=== PATIENT | male | born 1960 | race African-American/Black ===

== ENCOUNTER 2016-10-30 04:03 | Emergency (ER) | payer OTHER ==
[~2016-10-30] VITALS: Ht 165.1 cm; Wt 76.9 kg
[~2016-10-30 04:03] MED LIST: AMLO-147 PO; DIAZ-90 PO; HYDR-3498 PO; HYDR25TA6 PO; IBUP-1542 PO; METF500T4 PO; NAPR-260 PO
[2016-10-30 04:05] VITALS: Ht 165.1 cm; Wt 76.9 kg
--- NOTE | 2016-10-30 05:12 | RADRPT ---
PROCEDURE: Chest. CLINICAL INDICATION: Cough. TECHNIQUE: Single frontal view of the chest was obtained. COMPARISON: 04/17/2016. FINDINGS: The cardiac silhouette is within normal limits. The aortic arch is unremarkable. There is no focal consolidation, vascular congestion or pleural effusion. There is no pneumothorax. IMPRESSION: No evidence for active cardiopulmonary disease. .Eldon Nelson MD, MD Date Time Electronically viewed and signed by .Eldon Nelson MD, on 10/30/2016 05:12 .T/
--- NOTE | 2016-10-30 05:17 | ERD ---
ER Documentation Chief Complaint Date/Time DATE: 10/30/16 TIME: 05:14 Chief Complaint cough x 2 months HPI 36-year-old male presents in emergency department for complaints of cough for 2 months. Patient has been having dry cough, does not cough up any phlegm or blood. Patient does not have any shortness breath or wheezing. Patient takes Claritin home, was told to be having postnasal drip is white he has been coughing for 2 months now. Patient does not have any chest pain or palpitations. Patient denies any fever or chills. Patient denies any dyspnea on exertion or dyspnea on lying down. ROS All systems reviewed and are negative except as per history of present illness. Medications Home Meds Active Scripts Naproxen* (Naprosyn*) 500 Mg Tablet, 500 MG PO BID Y for PAIN AND/OR INFLAMMATION, #20 TAB Prov:RADHA MOORE 04/17/16 Hydrocodone Bit-Acetaminophen* ([place]*) 5-325 Mg Tab, 1 TAB PO Q6 Y for PAIN, # 20 TAB Prov:RADHA MOORE 04/17/16 Diazepam* (Valium*) 5 Mg Tablet, 5 MG PO Q8 Y for ANXIETY, #10 TAB Prov:RADHA MOORE 04/17/16 Ibuprofen* (Motrin*) 600 Mg Tab, 600 MG PO BID, #30 TAB 0 Refills Prov:GALI LARKIN PA-C 10/16/15 Reported Medications Metformin* (Glucophage*) 500 Mg Tab, 500 MG PO daily 03/06/13 Amlodipine Besylate* (Amlodipine Besylate*) 10 Mg Tablet, 10 MG PO DAILY 10/08/12 Hydrochlorothiazide (Hydrochlorothiazide) 25 Mg Tablet, 25 MG PO DAILY 02/12/12 Allergies Allergies: Coded Allergies: Shellfish (Verified Allergy, Unknown, 10/24/14) PMhx/Soc History of Surgery: Yes (R Hip Repair,Colorectomy) Anesthesia Reaction: No Hx Neurological Disorder: No Hx Respiratory Disorders: No Hx Cardiac Disorders: Yes (HTN) Hx Psychiatric Problems: No Hx Miscellaneous Medical Probl: Yes (Colon CA,L Index Finger Fx,L Shoulder Sprain,Tinea Cruris,Dyslipidemia,DM) Hx Alcohol Use: Yes (Social) Hx Substance Use: Yes (Weeds during his younger years) Hx Tobacco Use: Yes Smoking Status: Current every day smoker FmHx Family History: No coronary disease, No diabetes, No other Physical Exam Vitals Vital Signs Date Time Temp Pulse Resp B/P Pulse Ox O2 Delivery O2 Flow Rate FiO2 10/30/16 04:05 97.0 85 20 145/90 97 Physical Exam GENERAL: The patient is well developed and appropriate for usual state of health, in no apparent distress. HEENT: Atraumatic. Ears: Normal tympanic membrane, no erythema or bulging. No ear canal swelling. No ear discharge. Nose: Erythematous nasal turbinates with clear nasal discharge. Throat: oropharynx erythematous with postnasal drip. No tonsillar swelling or tonsillar exudates. No lymphadenopathy. CHEST: Clear to auscultation bilaterally. There are no rales, wheezes or rhonchi. HEART: Regular rate and rhythm. No murmurs, clicks, rubs or gallops. No S3 or S4. ABDOMEN: Soft, nontender and nondistended. Good bowel sounds. No rebound or guarding. No gross peritonitis. No gross organomegaly or masses. No Rauno sign or McBurney point tenderness. BACK: No midline or flank tenderness. EXTREMITIES: Equal pulses bilaterally. There is no peripheral clubbing, cyanosis or edema. No focal swelling or erythema. Full range of motion. Grossly neurovascularly intact. NEURO: Alert and oriented. Cranial nerves 2-12 intact. Motor strength in all 4 extremities with 5/5 strength. Sensation grossly intact. Normal speech and gait. SKIN: There is no apparent rash or petechia. The skin is warm and dry. HEMATOLOGIC AND LYMPHATIC: There is no evidence of excessive bruising or lymphedema. No gross cervical, axillary, or inguinal lymphadenopathy. Results 24 hrs PROCEDURE: Chest. CLINICAL INDICATION: Cough. TECHNIQUE: Single frontal view of the chest was obtained. COMPARISON: 04/17/2016. FINDINGS: The cardiac silhouette is within normal limits. The aortic arch is unremarkable. There is no focal consolidation, vascular congestion or pleural effusion. There is no pneumothorax. IMPRESSION: No evidence for active cardiopulmonary disease. .Eldon Nelson MD, Date Time Electronically viewed and signed by .Eldon Nelson MD, on 10/30/2016 05:12 .T/ CC: DHAVAL COLVIN WHISTLE PUNK Procedures/MDM Medical Decision Making: Patient symptoms are most likely consistent with any cough, possible from allergic rhinitis, can be also from atypical infection. A trial of antibiotics is with azithromycin will be given, patient will also given Flonase, Zyrtec, cough medication to help with symptoms.. There is low suspicion for Pneumonia at this time since patients lungs sounds are clear, patient O2 saturation is normal and patient doesnt show any respiratory distress. Patients chest xray doesnt show infiltrates or any other cardiopulmonary emergencies at this time. There is low suspicion for other cardiopulmonary emergencies at this time such as CHF, Pulmonary Embolism, Pneumothorax, Aortic Aneurysm or any other cardiopulmonary emergencies at this time. There is low suspicion for sepsis. Patient appears well and is hemodynamically stable. Patient does not have any fever. Disposition: Home. Condition: Stable Prescriptions: Zyrtec, Flonase, azithromycin, guaifenesin with codeine Instructions: Patient is advised to take medications as prescribed. Patient is advised to rest. Patient advised to increase fluid intake, do humidifier at home and if possible, do salt water gargles. Patient is advised that if symptoms are worse, shortness of breath, uncontrolled fever, stridor, vomiting, worst signs and symptoms to return to emergency department immediately. Otherwise, patient is advised to follow up with primary doctor in 5-7 days. Departure Diagnosis: Primary Impression: Chronic cough Condition: Stable Patient Instructions: Cough, Chronic, Uncertain Cause, (Adult) Additional Instructions: Patient is advised to take medications as prescribed. Patient is advised to rest. Patient advised to increase fluid intake, do humidifier at home and if possible, do salt water gargles. Patient is advised that if symptoms are worse, shortness of breath, uncontrolled fever, stridor, vomiting, worst signs and symptoms to return to emergency department immediately. Otherwise, patient is advised to follow up with primary doctor in 5-7 days. DHAVAL COLVIN NP Oct 30, 2016 05:17
[2016-10-30] MEDS ORDERED: FLUT9.9S NASAL (05:18)
[2016-10-30] MEDS ORDERED: GUAI473L22 PO (05:18)
[2016-10-30] MEDS ORDERED: CETI10CA PO (05:18)
[2016-10-30] MEDS ORDERED: ALBU8.5H3 INH (05:18)
[2016-10-30] MEDS ORDERED: AZIT250T94 PO (05:18)
== END 2016-10-30 05:39 | disposition home or self-care (01) ==
LOC: FTE 04:03
DX: R05 Cough (principal); F17.210 Nicotine dependence, cigarettes, uncomplicated; I10 Essential (primary) hypertension; E11.9 Type 2 diabetes mellitus without complications; Z79.84 Long term (current) use of oral hypoglycemic drugs; Z85.038 Personal history of other malignant neoplasm of large intestine
CPT/HCPCS: 71010; Z7502

== ENCOUNTER 2016-11-30 07:07 | Emergency (ER) | payer OTHER ==
[~2016-11-30] VITALS: Ht 180.3 cm; Wt 77.0 kg
[~2016-11-30 07:07] MED LIST changes: +ALBU8.5H3 INH; +AZIT250T94 PO; +CETI10CA PO; +FLUT9.9S NASAL; +GUAI473L22 PO
[2016-11-30 07:09] VITALS: Ht 180.3 cm; Wt 77.0 kg
--- NOTE | 2016-11-30 08:02 | RADRPT ---
PROCEDURE: Chest x-ray CLINICAL INDICATION: Cough. Pain TECHNIQUE: One-view frontal. COMPARISON: 10/30/2016 FINDINGS: The cardiac silhouette is normal. There is a nonspecific somewhat vaguely defined area of increased density measuring approximately 2 cm in size in the right laisha infrahilar region. The left lung is clear. No pneumothorax is noted. The aorta is ectatic. IMPRESSION: 1. 2 cm area of increased density in the right laisha infrahilar region. It is indeterminate if this may represent a vascular structure or a nodular process. CT study of the chest with intravenous co ntrast is recommended for further evaluation. RPTAT: HGSG .Nilay Kidd MD, Date Time Electronically viewed and signed by .Nilay Kidd MD, on 11/30/2016 08:01 .G/
--- NOTE | 2016-11-30 08:18 | ERD ---
ER Documentation Chief Complaint Date/Time DATE: 11/30/16 TIME: 08:17 Chief Complaint SORE THROAT X 3 DAYS HPI This a 56-year-old male who presents to the emergency department today complaining of persistent cough for the past month or so. Patient states he was seen here in October and was given a lot of medication but none of it has improved his cough. Patient states he also woke up with lip swelling after taking the medication. States he also takes lisinopril and amlodipine for his high blood pressure. States that he also smokes cigarettes. Denies any fevers or chills. ROS All systems reviewed and are negative except as per history of present illness. Medications Home Meds Active Scripts Dextromethorphan Hb-Promethazine Hcl (Promethazine DM Syrup) 473 Ml Syrup, 5 ML PO Q6 Y for COUGH for 5 Days, ML Prov:GERMAN LAMBERT PA-C 11/30/16 Azithromycin* (Zithromax*) 250 Mg Tablet, 250 MG PO .GorgePACK DIRECTED, #6 TAB TAKE 500 MG (2 TABS) THE FIRST DAY THEN 250 MG (1 TAB) DAYS 2-5 Prov:DHAVAL COLVIN NP 10/30/16 Fluticasone Propionate (Flonase Allergy Relief) 9.9 Ml [place].susp, 1 SPRAY NASAL BID, #1 BOTTLE TO EACH NOSTRIL Prov:DHAVAL COLVIN NP 10/30/16 Albuterol Sulfate* (Proair HFA*) 8.5 Gm Hfa.aer.ad, 2 PUFF INH Q4H Y for WHEEZING AND SOB, #1 INHALER Prov:DHAVAL COLVIN NP 10/30/16 Cetirizine Hcl* (Zyrtec*) 10 Mg Capsule, 10 MG PO DAILY, #30 TAB.CHEW Prov:DHAVAL COLVIN NP 10/30/16 Guaifenesin-Codeine Phosphate* (Guaifenesin* AC Cough Syrup) 473 Ml Liquid, 10 ML PO Q4H Y for COUGH, #120 ML Prov:DHAVAL COLVIN NP 10/30/16 Naproxen* (Naprosyn*) 500 Mg Tablet, 500 MG PO BID Y for PAIN AND/OR INFLAMMATION, #20 TAB Prov:RADHA MOORE 04/17/16 Hydrocodone Bit-Acetaminophen* ([place]*) 5-325 Mg Tab, 1 TAB PO Q6 Y for PAIN, # 20 TAB Prov:RADHA MOORE 04/17/16 Diazepam* (Valium*) 5 Mg Tablet, 5 MG PO Q8 Y for ANXIETY, #10 TAB Prov:RADHA MOORE 04/17/16 Ibuprofen* (Motrin*) 600 Mg Tab, 600 MG PO BID, #30 TAB 0 Refills Prov:GALI LARKIN PA-C 10/16/15 Reported Medications Metformin* (Glucophage*) 500 Mg Tab, 500 MG PO daily 03/06/13 Amlodipine Besylate* (Amlodipine Besylate*) 10 Mg Tablet, 10 MG PO DAILY 10/08/12 Hydrochlorothiazide (Hydrochlorothiazide) 25 Mg Tablet, 25 MG PO DAILY 02/12/12 Allergies Allergies: Coded Allergies: Shellfish (Verified Allergy, Unknown, 11/30/16) PMhx/Soc History of Surgery: Yes (R Hip Repair,Colorectomy) Anesthesia Reaction: No Hx Neurological Disorder: No Hx Respiratory Disorders: No Hx Cardiac Disorders: Yes (HTN) Hx Psychiatric Problems: No Hx Miscellaneous Medical Probl: Yes (Colon CA,L Index Finger Fx,L Shoulder Sprain,Tinea Cruris,Dyslipidemia,DM) Hx Alcohol Use: Yes (Social) Hx Substance Use: Yes (Weeds during his younger years) Hx Tobacco Use: Yes Smoking Status: Current every day smoker Physical Exam Vitals Vital Signs Date Time Temp Pulse Resp B/P Pulse Ox O2 Delivery O2 Flow Rate FiO2 11/30/16 07:09 98.0 78 18 137/80 99 Physical Exam Const: NAD Head: Atraumatic Eyes: Normal Conjunctiva ENT: Normal External Ears, Nose and Mouth. Neck: Full range of motion..~ No meningismus. Resp: Clear to auscultation bilaterally. No absent breath sounds. No wheezing. Cardio: Regular rate and rhythm, no murmurs Abd: Soft, non tender, non distended. Normal bowel sounds Skin: No petechiae or rashes Neur: Awake and alert Psych: Normal Mood and Affect Results 24 hrs DIAGNOSTIC IMAGING REPORT Patient: ANN MARIE HAND : 1960 Age: 56 Sex: M MR #: [id number] DOS: 11/30/16 0000 Ordering MD: GERAMN LAMBERT PA-C Location: [facility] Room/Bed: PROCEDURE: Chest x-ray CLINICAL INDICATION: Cough. Pain TECHNIQUE: One-view frontal. COMPARISON: 10/30/2016 FINDINGS: The cardiac silhouette is normal. There is a nonspecific somewhat vaguely defined area of increased density measuring approximately 2 cm in size in the right laisha infrahilar region. The left lung is clear. No pneumothorax is noted. The aorta is ectatic. IMPRESSION: 1. 2 cm area of increased density in the right laisha infrahilar region. It is indeterminate if this may represent a vascular structure or a nodular process. CT study of the chest with intravenous contrast is recommended for further evaluation. RPTAT: HGSG .Nilay Kidd MD, MD Date Time Electronically viewed and signed by .Nilay Kidd MD, on 11/30/2016 08: 01 .G/ CC: GERMAN LAMBERT PA-C Procedures/[facility] This a 56-year-old male who presents to the emergency department today complaining of persistent cough for the past month. I did repeat a chest x-ray Chest x-ray today shows a 2 cm area of increased density in the right laisha- infrahilar region. It is indeterminate if this represents a vascular structure or nodular process. A CT study of the chest with IV contrast was recommended for further eval. this was not noted on his chest x-ray on his previous visit on October 30, 2016. I have explained this to the patient. There is no evidence of pneumonia at this time. Low suspicion for PE, abscess, pleural effusion or pneumothorax as well. I do not feel the patient requires antibiotics at this time. I have explained this to the patient. Patient is afebrile and otherwise well-appearing. Patient was instructed to stop smoking cigarettes. I have also explained to the patient that the lisinopril also been causing the angioedema as well as the persistent cough. There is no evidence of angioedema today on physical exam. Patient's oxygen saturation is 99%. I have explained to the patient that he does need to follow- up about the findings on his chest x-ray. I have given him a list of resources for pulmonology specialist. Patient was given a prescription for Promethazine DM. At this time the patient is stable for discharge and outpatient management. Patient should follow up with their PCP in the next 1-2 days. They may return to the emergency department sooner for any persistent or worsening of symptoms. Patient understood and agreed with the plan. I discussed the patient with and he does not feel he needs further evaluation or workup at this time. Departure Diagnosis: Primary Impression: Cough Condition: GERMAN Zamora PA-C Nov 30, 2016 08:18
[2016-11-30] MEDS ORDERED: D-ME473S18 PO (08:29)
== END 2016-11-30 08:41 | disposition home or self-care (01) ==
LOC: FTE 07:07
DX: R05 Cough (principal); I10 Essential (primary) hypertension; F17.210 Nicotine dependence, cigarettes, uncomplicated; E11.9 Type 2 diabetes mellitus without complications; Z85.038 Personal history of other malignant neoplasm of large intestine; Z79.84 Long term (current) use of oral hypoglycemic drugs
CPT/HCPCS: 71010; Z7502

== ENCOUNTER 2017-03-24 22:58 | Emergency (ER) | payer OTHER ==
[~2017-03-24] VITALS: Ht 167.6 cm; Wt 71.5 kg
[~2017-03-24 22:58] MED LIST changes: +D-ME473S18 PO
[2017-03-24 23:04] VITALS: Ht 167.6 cm; Wt 71.5 kg
[2017-03-25] MEDS ORDERED: LIDO30JE13 RECTAL (00:26)
[2017-03-25] MEDS ORDERED: HYDR30CR75 PR (00:26)
[2017-03-25] MEDS ORDERED: BEN25 PO (00:27)
--- NOTE | 2017-03-25 00:42 | ERD ---
ER Documentation Chief Complaint Date/Time DATE: 03/25/17 TIME: 00:34 Chief Complaint pt reports hemorroids itching, denies blood in stool HPI Patient is a 57-year-old male with a history of diabetes, hypertension, BPH, hyperlipidemia, colon cancer presents the emergency department with concerns of rectal itching x 1 week. Patient states he has had hemorrhoids in the past. Patient states that his symptoms feel similar at this time. Patient does note a bulge in his anal region. Patient does report straining and a history of constipation. States he passed a large bowel movement earlier today. After his bowel movement he did notice some blood on the toilet paper. Patient denies any blood in his stools. Patient recently underwent endoscopy and colonoscopy in January of this year which were negative for any signs of cancer. Patient denies any fevers, chills, nausea, vomiting, abdominal pain, diarrhea or loss consciousness. ROS All systems reviewed and are negative except as per history of present illness. Medications Home Meds Active Scripts Diphenhydramine Hcl* (Benadryl*) 25 Mg Cap, 25 MG PO Q6, #30 CAP Prov:DAMION CARRANZA PA-C 03/25/17 Hydrocortisone Acetate* (Anusol-HC*) 30 Gm Cream.gm., 1 APPLIC MA BID, #1 TUB Prov:DAMION CARRANZA PA-C 03/25/17 Lidocaine (Lidocaine Topical) 30 Ml Jel, 30 ML RECTAL BID, #1 TUB Prov:DAMION CARRANZA PA-C 03/25/17 Dextromethorphan Hb-Promethazine Hcl (Promethazine DM Syrup) 473 Ml Syrup, 5 ML PO Q6 Y for COUGH for 5 Days, ML Prov:GERMAN LAMBERT PA-C 11/30/16 Azithromycin* (Zithromax*) 250 Mg Tablet, 250 MG PO .GorgePACK DIRECTED, #6 TAB TAKE 500 MG (2 TABS) THE FIRST DAY THEN 250 MG (1 TAB) DAYS 2-5 Prov:DHAVAL COLVIN NP 10/30/16 Fluticasone Propionate (Flonase Allergy Relief) 9.9 Ml [place].susp, 1 SPRAY NASAL BID, #1 BOTTLE TO EACH NOSTRIL Prov:DHAVAL COLVIN NP 10/30/16 Albuterol Sulfate* (Proair HFA*) 8.5 Gm Hfa.aer.ad, 2 PUFF INH Q4H Y for WHEEZING AND SOB, #1 INHALER Prov:DHAVAL COLVIN DIRECTOR [employer]ANCE 10/30/16 Cetirizine Hcl* (Zyrtec*) 10 Mg Capsule, 10 MG PO DAILY, #30 TAB.CHEW Prov:DHAVAL COLVIN DIRECTOR [employer]ANCE 10/30/16 Guaifenesin-Codeine Phosphate* (Guaifenesin* AC Cough Syrup) 473 Ml Liquid, 10 ML PO Q4H Y for COUGH, #120 ML Prov:DHAVAL COLVIN DIRECTOR [employer]ANCE 10/30/16 Naproxen* (Naprosyn*) 500 Mg Tablet, 500 MG PO BID Y for PAIN AND/OR INFLAMMATION, #20 TAB Prov:RADHA MOORE 04/17/16 Hydrocodone Bit-Acetaminophen* ([place]*) 5-325 Mg Tab, 1 TAB PO Q6 Y for PAIN, # 20 TAB Prov:RADHA MOORE 04/17/16 Diazepam* (Valium*) 5 Mg Tablet, 5 MG PO Q8 Y for ANXIETY, #10 TAB Prov:RADHA MOORE 04/17/16 Ibuprofen* (Motrin*) 600 Mg Tab, 600 MG PO BID, #30 TAB 0 Refills Prov:GALI LARKIN PA-C 10/16/15 Reported Medications Metformin* (Glucophage*) 500 Mg Tab, 500 MG PO daily 03/06/13 Amlodipine Besylate* (Amlodipine Besylate*) 10 Mg Tablet, 10 MG PO DAILY 10/08/12 Hydrochlorothiazide (Hydrochlorothiazide) 25 Mg Tablet, 25 MG PO DAILY 02/12/12 Allergies Allergies: Coded Allergies: Shellfish (Verified Allergy, Unknown, 11/30/16) PMhx/Soc History of Surgery: Yes (R Hip Repair,Colorectomy) Anesthesia Reaction: No Hx Neurological Disorder: No Hx Respiratory Disorders: No Hx Cardiac Disorders: Yes (HTN, HIGH CHOL) Hx Psychiatric Problems: No Hx Miscellaneous Medical Probl: Yes (Colon CA,L Index Finger Fx,L Shoulder Sprain,Tinea Cruris,Dyslipidemia,DM) Hx Alcohol Use: Yes (Social) Hx Substance Use: Yes (MARIJUANA WHILE YOUNG) Hx Tobacco Use: Yes Smoking Status: Current every day smoker Physical Exam Vitals Vital Signs Date Time Temp Pulse Resp B/P Pulse Ox O2 Delivery O2 Flow Rate FiO2 03/24/17 23:04 98.3 77 18 137/88 99 Physical Exam GENERAL: Well-developed, well-nourished male. Appears in no acute distress. HEAD: Normocephalic, atraumatic. EYES: Pupils are equally reactive bilaterally. EOMs grossly intact. No conjunctival erythema. ENT: Moist mucous membranes. No uvula deviation. No kissing tonsils. NECK: Supple. No meningismus. Normal range of motion of the neck. LUNG: Clear to auscultation bilaterally. No rhonchi, wheezing, rales or coarse breath sounds. HEART: Regular rate and rhythm. No murmurs, rubs or gallops. ABDOMEN: Soft, nontender, and nondistended. Positive bowel sounds in all four quadrants. No rebound tenderness, no guarding. (-) McBurney's point tenderness. No CVA tenderness. RECTAL: Normal anus with large external hemorrhoids. No active bleeding or discharge. No lesions noted surrounding anal region. EXTREMITIES: Equal pulses bilaterally. No peripheral clubbing, cyanosis or edema. No unilateral leg swelling. NEUROLOGIC: Alert and oriented. Moving all four extremities without any difficulty. Normal speech. Steady gait. SKIN: Normal color. Warm and dry. No rashes or lesions. Results 24 hrs Current Medications Medications (Trade) Dose Ordered Sig/Filippo Route PRN Reason Start Time Stop Time Status Last Admin Dose Admin Diphenhydramine HCl (Benadryl) 25 mg ONCE ONCE PO 03/25/17 01:30 03/25/17 01:30 DC 03/25/17 01:15 Procedures/MDM MEDICAL DECISION MAKING: Patient is a 57-year-old male who presents to the ED for concerns of recurrence of hemorrhoids and rectal itching x 1 week. Vital signs were reviewed. Patient is afebrile. Patient was not hypoxic. Patient was hemodynamically stable. Physical exam findings are consistent with external hemorrhoids. At this time unable to rule out any internal hemorrhoids. At this time, patient presentation is most consistent with external hemorrhoids and rectal itching. Low suspicion for anal fissures, anal fistula, pilonidal abscess, perirectal abscess, constipation, IBD. Patient was advised to follow-up with his GI specialist for further management of his hemorrhoids. Patient may need a lumbar patient may need repeat colonoscopy for ruling out any internal hemorrhoids. PRESCRIPTION: DISCHARGE: At this time, patient is stable for discharge and outpatient management. I have instructed the patient to follow-up with his/her primary care physician in 1-2 days. I have discussed with the patient the possibility of needing to see a specialist for further workup and imaging studies if symptoms persist. I have instructed the patient to promptly return to the ER for any new or worsening symptoms including increased pain, fever, nausea, vomiting, weakness or LOC. The patient and/or family expressed understanding of and agreement with this plan. All questions were answered. Home care instructions were provided. Departure Diagnosis: Primary Impression: External hemorrhoids Condition: Stable Patient Instructions: Understanding Hemorrhoids Referrals: ANTONELLA LOUISE GNANA MD GULSRUD,PRAMOD BILL MD, MD, [place] Additional Instructions: Call your primary care doctor TOMORROW for an appointment during the next 1-2 days.See the doctor sooner or return here if your condition worsens before your appointment time. Follow-up with your GI specialist for further management of your symptoms. You may need a rubber band ligation on an outpatient basis. DAMION CARRANZA PA-C Mar 25, 2017 00:42
[2017-03-25] MEDS ORDERED: DIPHENHYDRAMINE 25 MG CAP PO ONE (01:30)
== END 2017-03-25 01:16 | disposition home or self-care (01) ==
LOC: FTE 22:58
DX: K64.8 Other hemorrhoids (principal); I10 Essential (primary) hypertension; E11.9 Type 2 diabetes mellitus without complications; F17.210 Nicotine dependence, cigarettes, uncomplicated; Z79.84 Long term (current) use of oral hypoglycemic drugs; Z85.038 Personal history of other malignant neoplasm of large intestine
CPT/HCPCS: Z7502; Z7610; 99284

== ENCOUNTER 2017-05-31 17:51 | Inpatient (IN) | payer OTHER ==
[~2017-05-31] VITALS: Ht 167.6 cm; Wt 72.6 kg
[~2017-05-31 17:51] MED LIST changes: +BEN25 PO; +HYDR30CR75 PR; +LIDO30JE13 RECTAL
[2017-05-31] MEDS ORDERED: SOD CHLORIDE 0.9% 1,000 ML IV STA (19:27)
[2017-05-31] MEDS ORDERED: morphine 4 MG/ML VIAL IV STA (19:27)
[2017-05-31] MEDS ORDERED: ONDANSETRON 4 MG INJ IV STA (19:27)
[2017-05-31 20:01] LABS: BASOPHILS % 0.4 % (0.0-2.0); EOSINOPHILS % 0.3 % (0.0-7.0); HEMATOCRIT 47.8 % (42.0-52.0); HEMOGLOBIN 17.4 g/dl (14.0-18.0); LYMPHOCYTES # 1.1 10^3/ul (0.8-2.9); LYMPHOCYTES % 10.4 % (15.0-51.0); MEAN CORPUSCULAR HEMOGLOBIN 30.5 pg (29.0-33.0); MEAN CORPUSCULAR HGB CONC 36.4 g/dl (32.0-37.0); MEAN CORPUSCULAR VOLUME 83.7 fl (82.0-101.0); MEAN PLATELET VOLUME 10.6 fl (7.4-10.4); MONOCYTE # 0.5 10^3/ul (0.3-0.9); MONOCYTES % 4.4 % (0.0-11.0); NEUTROPHIL # 8.9 10^3/ul (1.6-7.5); PLATELET COUNT 310 10^3/UL (140-415); RED BLOOD COUNT 5.71 10^6/ul (4.70-6.10); RED CELL DISTRIBUTION WIDTH 13.2 % (11.5-14.5); WHITE BLOOD COUNT 10.6 10^3/ul (4.8-10.8)
--- NOTE | 2017-05-31 20:55 | RADRPT ---
PROCEDURE: CT Abdomen and Pelvis without contrast. CLINICAL INDICATION: Abdominal and pelvic pain. TECHNIQUE: CT scan of the abdomen and pelvis without contrast was performed. Coronal and sagittal reformatted images were obtained from the axial source images. Images were reviewed on a high-resolu 20:20 [employer] PACS workstation. Total exam DLP is 474.81 mGy-cm. CTDIvol is 7.66 mGy. One or more of the fo llowin dose reduction techniques were used: Automated exposure control, adjustment of the mA and/or kV according to patient size, use of iterative reconstruction technique. COMPARISON: None. FINDINGS: The lung bases are normal. There is no pleural effusion. There is scarring at both lung bases. There is a small benign calcified granuloma in the right lower lobe medially. The lung bases are otherwise normal. There is no pleural effusion or pericardial eff usion. The gallbladder and bile ducts are normal. The spleen is normal in size. There is no focal splenic lesion. Both adrenals are normal with no enlargement or mass. The pancreas is unremarkable with no mass or evidence of pancreatitis. There is no renal mass or hydronephrosis. There is no renal calculus or ureteral calculus. The abdominal aorta is not dilated. There is calcification in the aorta consistent with atherosclero sis. There is no retroperitoneal lymphadenopathy or mass. There is no pelvic lymphadenopathy or mass. The bladder and distal ureters are normal. There has been prior bowel surgery with multiple eagle in the right lower quadrant. There is small bowel obstruction with multiple dilated loops of small bowel distally with air-fluid levels. Dilated small bowel measures up to 4.3 cm in diameter. No definite transition point is visua lized. There is diverticulosis of the colon without evidence of diverticulitis. A small amount of free fluid is present in the pelvis. There is no free air. There are degenerative changes of the spine. There is heterotopic bone formation adjacent to the rig ht acetabulum. The osseous structures are otherwise unremarkable. IMPRESSION: 1. Scarring at the lung bases. 2. Benign calcified granuloma in the right lower lobe medially. 3. Atherosclerosis. 4. Prior bowel surgery with multiple eagle in the right lower quadrant. 5. Small bowel obstruction with no definite transition point visualized. 6. Diverticulosis of the colon without evidence of diverticulitis. 7. Small amount of free fluid in the pelvis. No free air. 8. Degenerative changes of the spine. 9. Heterotopic bone formation adjacent to the right acetabulum. RPTAT: QQ .Pranav Gallo MD, Date Time Electronically viewed and signed by .Pranav Gallo MD, on 05/31/2017 20:54 .R/
[2017-05-31 21:23] LABS: ALBUMIN 4.2 g/dl (3.3-4.9); ALBUMIN/GLOBULIN RATIO 1.23; BILIRUBIN,INDIRECT 0.7 mg/dl (0-1.1); BILIRUBIN,TOTAL 0.7 mg/dl (0.2-1.3); CALCIUM 8.9 mg/dl (8.4-10.2); CREATININE 0.99 mg/dl (0.61-1.24); POTASSIUM 3.5 mmol/L (3.5-5.1); TOTAL PROTEIN 7.6 g/dl (6.1-8.1)
--- NOTE | 2017-05-31 21:38 | ERD ---
ER Documentation Chief Complaint Date/Time DATE: 05/31/17 TIME: 21:34 Chief Complaint ABD PAIN X "A COUPLE OF HOURS" HPI This is a 57-year-old male presents to the ER with mid abdominal pain that started this morning. Patient states that abdominal pain is intermittent and severe. Patient has had nausea and vomiting. He denies any diarrhea he denies any fevers or chills. He denies any testicular pain. He denies any urinary frequency or dysuria. He denies any flank pain. Patient has a past medical history of hypertension and colon cancer had extensive abdominal surgery. Patient admits to drinking smoking. ROS 12 point review of systems was done, all negative except per HPI. Medications Home Meds Active Scripts Diphenhydramine Hcl* (Benadryl*) 25 Mg Cap, 25 MG PO Q6, #30 CAP Prov:DAMION CARRANZA PA-C 03/25/17 Hydrocortisone Acetate* (Anusol-HC*) 30 Gm Cream.gm., 1 APPLIC ME BID, #1 TUB Prov:DAMION CARRANZA PA-C 03/25/17 Lidocaine (Lidocaine Topical) 30 Ml Jel, 30 ML RECTAL BID, #1 TUB Prov:DAMION CARRANZA PA-C 03/25/17 Dextromethorphan Hb-Promethazine Hcl (Promethazine DM Syrup) 473 Ml Syrup, 5 ML PO Q6 Y for COUGH for 5 Days, ML Prov:GERMAN LAMBERT PA-C 11/30/16 Azithromycin* (Zithromax*) 250 Mg Tablet, 250 MG PO .GorgePASANAZ DIRECTED, #6 TAB TAKE 500 MG (2 TABS) THE FIRST DAY THEN 250 MG (1 TAB) DAYS 2-5 Prov:DHAVAL COLVIN NP 10/30/16 Fluticasone Propionate (Flonase Allergy Relief) 9.9 Ml [place].susp, 1 SPRAY NASAL BID, #1 BOTTLE TO EACH NOSTRIL Prov:DHAVAL COLVIN NP 10/30/16 Albuterol Sulfate* (Proair HFA*) 8.5 Gm Hfa.aer.ad, 2 PUFF INH Q4H Y for WHEEZING AND SOB, #1 INHALER Prov:DHAVAL COLVIN NP 10/30/16 Cetirizine Hcl* (Zyrtec*) 10 Mg Capsule, 10 MG PO DAILY, #30 TAB.CHEW Prov:DHAVAL COLVIN SUPERVISOR [employer]SEMBLY 10/30/16 Guaifenesin-Codeine Phosphate* (Guaifenesin* AC Cough Syrup) 473 Ml Liquid, 10 ML PO Q4H Y for COUGH, #120 ML Prov:DHAVAL COLVIN SUPERVISOR [employer]IDE [employer]SEMBLY 10/30/16 Naproxen* (Naprosyn*) 500 Mg Tablet, 500 MG PO BID Y for PAIN AND/OR INFLAMMATION, #20 TAB Prov:RADHA MOORE 04/17/16 Hydrocodone Bit-Acetaminophen* ([place]*) 5-325 Mg Tab, 1 TAB PO Q6 Y for PAIN, # 20 TAB Prov:RADHA MOORE 04/17/16 Diazepam* (Valium*) 5 Mg Tablet, 5 MG PO Q8 Y for ANXIETY, #10 TAB Prov:RADHA MOORE 04/17/16 Ibuprofen* (Motrin*) 600 Mg Tab, 600 MG PO BID, #30 TAB 0 Refills Prov:GALI LARKIN PA-C 10/16/15 Reported Medications Metformin* (Glucophage*) 500 Mg Tab, 500 MG PO daily 03/06/13 Amlodipine Besylate* (Amlodipine Besylate*) 10 Mg Tablet, 10 MG PO DAILY 10/08/12 Hydrochlorothiazide (Hydrochlorothiazide) 25 Mg Tablet, 25 MG PO DAILY 02/12/12 Allergies Allergies: Coded Allergies: Shellfish (Verified Allergy, Unknown, 11/30/16) PMhx/Soc History of Surgery: Yes (R Hip Repair,Colorectomy from colon ca) Anesthesia Reaction: No Hx Neurological Disorder: No Hx Respiratory Disorders: No Hx Cardiac Disorders: Yes (HTN, HIGH CHOL) Hx Psychiatric Problems: No Hx Miscellaneous Medical Probl: Yes (Colon CA,L Index Finger Fx,L Shoulder Sprain,Tinea Cruris,Dyslipidemia,DM) Hx Alcohol Use: Yes (Social) Hx Substance Use: Yes (MARIJUANA WHILE YOUNG) Hx Tobacco Use: Yes Smoking Status: Current some day smoker Physical Exam Vitals Vital Signs Date Time Temp Pulse Resp B/P Pulse Ox O2 Delivery O2 Flow Rate FiO2 05/31/17 17:55 98.1 78 18 147/83 91 Physical Exam GENERAL: The patient is well developed and appropriate for usual state of health , in no apparent distress. HEENT: Atraumatic. Conjunctivae are pink. Pupils equal, round, and reactive to light. Extraocular muscles are grossly intact. Bilateral tympanic membranes are clear with no evidence of erythema, effusion or dulling of the light reflex. The oropharynx is clear with no erythema or exudates. NECK: C-spine is soft and supple. There is no cervical lymphadenopathy. CHEST: Clear to auscultation bilaterally. There are no rales, wheezes or rhonchi. HEART: Regular rate and rhythm. No murmurs, clicks, rubs or gallops. ABDOMEN: Soft nondistended, patient is tender to palpation throughout the entire abdomen, and is most tender in the middle of the abdomen there is a large vertical scar from prior surgery.. Good bowel sounds. No rebound or guarding. No gross peritonitis. No gross organomegaly or masses. No Ruano sign or McBurney point tenderness. BACK: No midline or flank tenderness. NEURO: Alert and oriented. SKIN: There is no apparent rash or petechia. The skin is warm and dry. Result Diagram: 05/31/17194805/31/172044 Results 24 hrs Laboratory Tests Test 05/31/17 19:49 05/31/17 20:45 White Blood Count 10.610^3/ul Red Blood Count 5.7110^6/ul Hemoglobin 17.4g/dl Hematocrit 47.8% Mean Corpuscular Volume 83.7fl Mean Corpuscular Hemoglobin 30.5pg Mean Corpuscular Hemoglobin Concent 36.4g/dl Red Cell Distribution Width 13.2% Platelet Count 53618^3/UL Mean Platelet Volume 10.6fl Neutrophils % 84.0% Lymphocytes % 10.4% Monocytes % 4.4% Eosinophils % 0.3% Basophils % 0.4% Nucleated Red Blood Cells % 0.0/100WBC Neutrophils # 8.910^3/ul Lymphocytes # 1.110^3/ul Monocytes # 0.510^3/ul Eosinophils # 0.010^3/ul Basophils # 0.010^3/ul Nucleated Red Blood Cells # 0.010^3/ul Sodium Level 134mmol/L Potassium Level 3.5mmol/L Chloride Level 95mmol/L Carbon Dioxide Level 24mmol/L Anion Gap 19 Blood Urea Nitrogen 18mg/dl Creatinine 0.99mg/dl Glucose Level 115mg/dl Calcium Level 8.9mg/dl Total Bilirubin 0.7mg/dl Direct Bilirubin 0.00mg/dl Indirect Bilirubin 0.7mg/dl Aspartate Amino Transf (AST/SGOT) 32IU/L Alanine Aminotransferase (ALT/SGPT) 34IU/L Alkaline Phosphatase 91IU/L Total Protein 7.6g/dl Albumin 4.2g/dl Globulin 3.40g/dl Albumin/Globulin Ratio 1.23 Lipase 48U/L Current Medications Medications (Trade) Dose Ordered Sig/Filippo Route PRN Reason Start Time Stop Time Status Last Admin Dose Admin Sodium Chloride (NS) 1,000 ml @ 1,000 mls/hr Q1H STAT IV 05/31/17 19:27 05/31/17 20:26 DC 05/31/17 19:56 Morphine Sulfate (morphine) 6 mg ONCE STAT IV 05/31/17 19:27 05/31/17 19:30 DC 05/31/17 19:49 Ondansetron HCl (Zofran Inj) 4 mg ONCE STAT IV 05/31/17 19:27 05/31/17 19:30 DC 05/31/17 19:49 [place] [id number] Radiology Main Line: [phone] DIAGNOSTIC IMAGING REPORT Patient: ANN MARIE HAND : 1960 Age: 57 Sex: M MR #: [id number] DOS: 05/31/171926 Ordering MD: DARREL WILCOX PA-C Location: [facility] Room/Bed: PROCEDURE: CT Abdomen and Pelvis without contrast. CLINICAL INDICATION: Abdominal and pelvic pain. TECHNIQUE: CT scan of the abdomen and pelvis without contrast was performed. Coronal and sagittal reformatted images were obtained from the axial source images. Images were reviewed on a high-resolution PACS workstation. Total exam DLP is 474.81 mGy-cm. CTDIvol is 7.66 mGy. One or more of the following dose reduction techniques were used: Automated exposure control, adjustment of the mA and/or kV according to patient size, use of iterative reconstruction technique. COMPARISON: None. FINDINGS: The lung bases are normal. There is no pleural effusion. There is scarring at both lung bases. There is a small benign calcified granuloma in the right lower lobe medially. The lung bases are otherwise normal. There is no pleural effusion or pericardial effusion. The gallbladder and bile ducts are normal. The spleen is normal in size. There is no focal splenic lesion. Both adrenals are normal with no enlargement or mass. The pancreas is unremarkable with no mass or evidence of pancreatitis. There is no renal mass or hydronephrosis. There is no renal calculus or ureteral calculus. The abdominal aorta is not dilated. There is calcification in the aorta consistent with atherosclerosis. There is no retroperitoneal lymphadenopathy or mass. There is no pelvic lymphadenopathy or mass. The bladder and distal ureters are normal. There has been prior bowel surgery with multiple ealge in the right lower quadrant. There is small bowel obstruction with multiple dilated loops of small bowel distally with air-fluid levels. Dilated small bowel measures up to 4.3 cm in diameter. No definite transition point is visualized. There is diverticulosis of the colon without evidence of diverticulitis. A small amount of free fluid is present in the pelvis. There is no free air. There are degenerative changes of the spine. There is heterotopic bone formation adjacent to the right acetabulum. The osseous structures are otherwise unremarkable. IMPRESSION: 1. Scarring at the lung bases. 2. Benign calcified granuloma in the right lower lobe medially. 3. Atherosclerosis. 4. Prior bowel surgery with multiple eagle in the right lower quadrant. 5. Small bowel obstruction with no definite transition point visualized. 6. Diverticulosis of the colon without evidence of diverticulitis. 7. Small amount of free fluid in the pelvis. No free air. 8. Degenerative changes of the spine. 9. Heterotopic bone formation adjacent to the right acetabulum. RPTAT: QQ .Pranav Gallo MD, MD Date Time Electronically viewed and signed by .Pranav Gallo MD, MD on 05/31/2017 20:54 .R/ CC: DARREL WILCOX/MDM Differential diagnosis includes but is not limited to appendicitis, hernia, testicular torsion, UTI, constipation, obstruction, epididymitis this is a 57- year-old male presents to the ER with abdominal pain, patient does have a small bowel obstruction on CT scan, likely due to adhesions from previous surgery. Patient be transferred to ER 1 for further management and care.. Departure Diagnosis: Primary Impression: Small bowel obstruction Condition: Stable DARREL WILCOX May 31, 2017 21:38
[2017-05-31] MEDS ORDERED: SOD CHLORIDE 0.9% 1,000 ML IV SCH (23:49)
[2017-06-01] MEDS ORDERED: ACETAMINOPHEN 325 MG TAB PO PRN
[2017-06-01 00:22] LABS: ADD UMIC YES; UR ASCORBIC ACID NEGATIVE (NEGATIVE); UR BILIRUBIN (Dip) NEGATIVE (NEGATIVE); UR BLOOD (Dip) NEGATIVE (NEGATIVE); UR CLARITY CLEAR (CLEAR); UR COLOR YELLOW (YELLOW); UR GLUCOSE (Dip) NEGATIVE (NEGATIVE); UR KETONES (Dip) 1+ mg/dL (NEGATIVE); UR LEUKOCYTE ESTERASE (Dip) NEGATIVE Leu/ul (NEGATIVE); UR NITRITE (Dip) NEGATIVE (NEGATIVE); UR RBC 1 /HPF (0-5); UR SPECIFIC GRAVITY (Dip) 1.013 (1.003-1.030); UR TOTAL PROTEIN (Dip) 2+ mg/dl (NEGATIVE); UR UROBILINOGEN (Dip) NEGATIVE (NEGATIVE)
[2017-06-01 01:14] VITALS: PULSE 95
[2017-06-01] MEDS ORDERED: SOD CHLORIDE 0.9% 1,000 ML IV SCH (01:16)
[2017-06-01] MEDS ORDERED: ONDANSETRON 4 MG INJ IV PRN ×2 (01:30)
[2017-06-01] MEDS ORDERED: DEXTROSE 50% 50 ML SYRINGE IV PRN ×2 (01:30)
[2017-06-01] MEDS ORDERED: GLUCOSE GEL 15 GRAM TUBE BUCCAL PRN (01:30)
[2017-06-01] MEDS ORDERED: GLUCAGON 1 MG INJ IM PRN (01:30)
[2017-06-01] MEDS ORDERED: NACL 0.9% 3 ML SYG IV SCH (01:30)
[2017-06-01] MEDS ORDERED: GLUCOSE GEL 15 GRAM TUBE PO PRN ×2 (01:30)
[2017-06-01] MEDS ORDERED: ACETAMINOPHEN 650 MG SUPP PR PRN (01:30)
--- NOTE | 2017-06-01 01:30 | RADRPT ---
PROCEDURE: Chest. CLINICAL INDICATION: Chest pain. TECHNIQUE: Single frontal view of the chest was obtained. COMPARISON: 11/30/2016. FINDINGS: There is a nasogastric tube extending to the gastroesophageal junction P The cardiac silhouette is m agnified. The aortic arch is unremarkable. There is mild bibasilar atelectasis and scarring. There is no focal consolidation, vascular congestion or pleural effusion. There is no pneumothorax. IMPRESSION: Nasogastric tube extending to the gastroesophageal junction. Further advancement is needed. Mild bibasilar atelectasis and scarring. .Eldon Nelson MD, Date Time Electronically viewed and signed by .Eldon Nelson MD, on 06/01/2017 01:30 .T/
[2017-06-01 01:40] VITALS: BP 107/80; RESP 18
[2017-06-01 01:50] VITALS: Ht 167.6 cm; Wt 72.6 kg
[2017-06-01] MEDS ORDERED: ACCU-CHEK XX SCH (02:00)
--- NOTE | 2017-06-01 02:09 | ERA ---
ER Documentation Chief Complaint Date/Time DATE: 06/01/17 TIME: 01:55 Chief Complaint ABD PAIN X "A COUPLE OF HOURS" HPI This is a 57-year-old male with a past medical history of hypertension, persistent tobacco and alcohol abuse, and colon cancer status post resection who presents to the ER with mid abdominal pain that started this morning. Patient states that abdominal pain is intermittent but severe, so sedated with nausea and nonbilious/nonbloody vomiting. He also endorses loose stools recently, and had a watery episode this evening. He denies any fevers or chills. He denies headache or vision changes. He denies chest pain or trouble breathing. He denies back pain. He denies any testicular pain. He denies any urinary frequency or dysuria. He denies any flank pain. ROS All systems reviewed and are negative except as per history of present illness. Medications Home Meds Active Scripts Diphenhydramine Hcl* (Benadryl*) 25 Mg Cap, 25 MG PO Q6, #30 CAP Prov:DAMION CARRANZA PA-C 03/25/17 Hydrocortisone Acetate* (Anusol-HC*) 30 Gm Cream.gm., 1 APPLIC [place] BID, #1 TUB Prov:DAMION CARRANZA PA-C 03/25/17 Lidocaine (Lidocaine Topical) 30 Ml Jel, 30 ML RECTAL BID, #1 TUB Prov:DAMION CARRANZA PA-C 03/25/17 Dextromethorphan Hb-Promethazine Hcl (Promethazine DM Syrup) 473 Ml Syrup, 5 ML PO Q6 Y for COUGH for 5 Days, ML Prov:GERMAN LAMBERT PA-C 11/30/16 Azithromycin* (Zithromax*) 250 Mg Tablet, 250 MG PO .ZPACK DIRECTED, #6 TAB TAKE 500 MG (2 TABS) THE FIRST DAY THEN 250 MG (1 TAB) DAYS 2-5 Prov:DHAVAL COLVIN NP 10/30/16 Fluticasone Propionate (Flonase Allergy Relief) 9.9 Ml [place].susp, 1 SPRAY NASAL BID, #1 BOTTLE TO EACH NOSTRIL Prov:DHAVAL COLVIN NP 10/30/16 Albuterol Sulfate* (Proair HFA*) 8.5 Gm Hfa.aer.ad, 2 PUFF INH Q4H Y for WHEEZING AND SOB, #1 INHALER Prov:DHAVAL COLVIN PIPELINE SUPERINTENDENT 10/30/16 Cetirizine Hcl* (Zyrtec*) 10 Mg Capsule, 10 MG PO DAILY, #30 TAB.CHEW Prov:DHAVAL COLVIN PIPELINE SUPERINTENDENT 10/30/16 Guaifenesin-Codeine Phosphate* (Guaifenesin* AC Cough Syrup) 473 Ml Liquid, 10 ML PO Q4H Y for COUGH, #120 ML Prov:DHAVAL COLVIN PIPELINE SUPERINTENDENT 10/30/16 Naproxen* (Naprosyn*) 500 Mg Tablet, 500 MG PO BID Y for PAIN AND/OR INFLAMMATION, #20 TAB Prov:RADHA MOORE 04/17/16 Hydrocodone Bit-Acetaminophen* ([place]*) 5-325 Mg Tab, 1 TAB PO Q6 Y for PAIN, # 20 TAB Prov:RADHA MOORE 04/17/16 Diazepam* (Valium*) 5 Mg Tablet, 5 MG PO Q8 Y for ANXIETY, #10 TAB Prov:RADHA MOORE 04/17/16 Ibuprofen* (Motrin*) 600 Mg Tab, 600 MG PO BID, #30 TAB 0 Refills Prov:GALI LARKIN PA-C 10/16/15 Reported Medications Metformin* (Glucophage*) 500 Mg Tab, 500 MG PO daily 03/06/13 Amlodipine Besylate* (Amlodipine Besylate*) 10 Mg Tablet, 10 MG PO DAILY 10/08/12 Hydrochlorothiazide (Hydrochlorothiazide) 25 Mg Tablet, 25 MG PO DAILY 02/12/12 Allergies Allergies: Coded Allergies: Shellfish (Verified Allergy, Unknown, 11/30/16) PMhx/Soc History of Surgery: Yes (R Hip Repair,Colorectomy from colon ca) Anesthesia Reaction: No Hx Neurological Disorder: No Hx Respiratory Disorders: No Hx Cardiac Disorders: Yes (HTN, HIGH CHOL) Hx Psychiatric Problems: No Hx Miscellaneous Medical Probl: Yes (Colon CA,L Index Finger Fx,L Shoulder Sprain,Tinea Cruris,Dyslipidemia,DM) Hx Alcohol Use: Yes (Social) Hx Substance Use: Yes (MARIJUANA WHILE YOUNG) Hx Tobacco Use: Yes Smoking Status: Current some day smoker Physical Exam Vitals Vital Signs Date Time Temp Pulse Resp B/P Pulse Ox O2 Delivery O2 Flow Rate FiO2 05/31/17 17:55 98.1 78 18 147/83 91 Physical Exam Const: No apparent distress, well-developed, well-nourished Head: Atraumatic Eyes: Normal Conjunctiva ENT: Normal External Ears, Nose and Mouth. Neck: Full range of motion..~ No meningismus. Resp: Clear to auscultation bilaterally Cardio: Regular rate and rhythm, no murmurs Abd: Soft, non distended. Generalized abdominal tenderness with voluntary guarding. Normal bowel sounds Skin: No petechiae or rashes Back: No midline or flank tenderness Ext: No cyanosis, or edema Neur: Awake and alert, normal sensation, normal strength Psych: Normal Mood and Affect Result Diagram: 05/31/17194805/31/172044 Results 24 hrs Laboratory Tests Test 05/31/17 19:49 05/31/17 20:45 05/31/17 23:44 White Blood Count 10.610^3/ul Red Blood Count 5.7110^6/ul Hemoglobin 17.4g/dl Hematocrit 47.8% Mean Corpuscular Volume 83.7fl Mean Corpuscular Hemoglobin 30.5pg Mean Corpuscular Hemoglobin Concent 36.4g/dl Red Cell Distribution Width 13.2% Platelet Count 04694^3/UL Mean Platelet Volume 10.6fl Neutrophils % 84.0% Lymphocytes % 10.4% Monocytes % 4.4% Eosinophils % 0.3% Basophils % 0.4% Nucleated Red Blood Cells % 0.0/100WBC Neutrophils # 8.910^3/ul Lymphocytes # 1.110^3/ul Monocytes # 0.510^3/ul Eosinophils # 0.010^3/ul Basophils # 0.010^3/ul Nucleated Red Blood Cells # 0.010^3/ul Sodium Level 134mmol/L Potassium Level 3.5mmol/L Chloride Level 95mmol/L Carbon Dioxide Level 24mmol/L Anion Gap 19 Blood Urea Nitrogen 18mg/dl Creatinine 0.99mg/dl Glucose Level 115mg/dl Calcium Level 8.9mg/dl Total Bilirubin 0.7mg/dl Direct Bilirubin 0.00mg/dl Indirect Bilirubin 0.7mg/dl Aspartate Amino Transf (AST/SGOT) 32IU/L Alanine Aminotransferase (ALT/SGPT) 34IU/L Alkaline Phosphatase 91IU/L Total Protein 7.6g/dl Albumin 4.2g/dl Globulin 3.40g/dl Albumin/Globulin Ratio 1.23 Lipase 48U/L Urine Color YELLOW Urine Clarity CLEAR Urine pH 5.0 Urine Specific [place] 1.013 Urine Ketones 1+mg/dL Urine Nitrite NEGATIVEmg/dL Urine Bilirubin NEGATIVEmg/dL Urine Urobilinogen NEGATIVEmg/dL Urine Leukocyte Esterase NEGATIVELeu/ul Urine Microscopic RBC 1/HPF Urine Microscopic WBC 0/HPF Urine Hemoglobin NEGATIVEmg/dL Urine Glucose NEGATIVEmg/dL Urine Total Protein 2+mg/dl Current Medications Medications (Trade) Dose Ordered Sig/Filippo Route PRN Reason Start Time Stop Time Status Last Admin Dose Admin Sodium Chloride (NS) 1,000 ml @ 1,000 mls/hr Q1H STAT IV 05/31/17 19:27 05/31/17 20:26 DC 05/31/17 19:56 Morphine Sulfate (morphine) 6 mg ONCE STAT IV 05/31/17 19:27 05/31/17 19:30 DC 05/31/17 19:49 Ondansetron HCl 4 mg 4 mg ONCE STAT IV 05/31/17 19:27 05/31/17 19:30 DC 05/31/17 19:49 Sodium Chloride (NS) 1,000 ml @ 80 mls/hr [id number] IV 05/31/17 23:49 06/01/17 12:18 Procedures/MDM MDM Patient's presentation warrants further investigation. Given the patient's symptoms with a history of significant abdominal surgery, I do have concern for small bowel obstruction. An abdominal workup will be performed including blood work and CT imaging. The patient was given morphine for pain with adequate symptom improvement. I do not see pain out of proportion to exam, and my suspicion for mesenteric ischemia or ischemic colitis is low. LABS The patient's blood work was obtained and reviewed. The patient seemed shows no leukocytosis, but there is a left shift. The patient is afebrile, and I do not suspect a systemic infection, but this should be trended. The patient is not anemic today. The patient's platelet count is unremarkable. The patient's CMP shows mild hyponatremia and hypochloremia. The patient will be given normal saline in the emergency department. The patient has normal renal and hepatic function testing. IMAGING CT A/P IMPRESSION: 1. Scarring at the lung bases. 2. Benign calcified granuloma in the right lower lobe medially. 3. Atherosclerosis. 4. Prior bowel surgery with multiple eagle in the right lower quadrant. 5. Small bowel obstruction with no definite transition point visualized. 6. Diverticulosis of the colon without evidence of diverticulitis. 7. Small amount of free fluid in the pelvis. No free air. 8. Degenerative changes of the spine. 9. Heterotopic bone formation adjacent to the right acetabulum. Electronically viewed and signed by .Pranav Gallo MD, on 05/31/2017 20:54 TREATMENT/DISPOSITION The patient's CT imaging had multiple incidental findings, but the concerning finding that will require admission is an SBO. The general surgeon oncall was called to discuss the case. As expected, he recommended an NG tube be placed in addition to maintenance fluids for adequate hydration. An NG tube was successfully placed as evidenced on an x-ray which is demonstrated below. CXR IMPRESSION: Nasogastric tube extending to the gastroesophageal junction. Further advancement is needed. Mild bibasilar atelectasis and scarring. Electronically viewed and signed by .Eldon Nelson MD, on 06/01/2017 01:30 The patient was made n.p.o. He will be serially evaluated in the emergency department for pain control. On my last reevaluation, the patient's pain was significantly improved. Patient will be admitted to the panel service as per his insurance status. He was accepted by Dr. Mccoy at 11:48 PM on May 31, 2017. Departure Diagnosis: Primary Impression: Small bowel obstruction Condition: Stable GHANSHYAM AKERS MD Jun 01, 2017 02:06
[2017-06-01] MEDS: morphine 2 MG INJ IV PRN ×4 (02:28→19:10)
[2017-06-01] MEDS: INSULIN ASPART [NOVOLOG] 3 ML PEN SC SCH ×5 (05:00→20:50)
[2017-06-01] MEDS: PANTOPRAZOLE 40 MG INJ IV SCH (05:23)
[2017-06-01 05:38] LABS: BASOPHILS % 0.5 % (0.0-2.0); EOSINOPHILS % 0.5 % (0.0-7.0); HEMOGLOBIN 15.3 g/dl (14.0-18.0); LYMPHOCYTES # 1.6 10^3/ul (0.8-2.9); MEAN CORPUSCULAR HEMOGLOBIN 29.9 pg (29.0-33.0); MEAN CORPUSCULAR HGB CONC 36.4 g/dl (32.0-37.0); MEAN CORPUSCULAR VOLUME 82.2 fl (82.0-101.0); MEAN PLATELET VOLUME 9.9 fl (7.4-10.4); MONOCYTE # 0.8 10^3/ul (0.3-0.9); MONOCYTES % 12.9 % (0.0-11.0); NEUTROPHIL # 3.6 10^3/ul (1.6-7.5); NEUTROPHILS % 59.9 % (39.0-77.0); PLATELET COUNT 300 10^3/UL (140-415); RED BLOOD COUNT 5.11 10^6/ul (4.70-6.10); RED CELL DISTRIBUTION WIDTH 12.2 % (11.5-14.5); WHITE BLOOD COUNT 6.1 10^3/ul (4.8-10.8)
--- NOTE | 2017-06-01 06:21 | HP ---
Date/Time of Note Date/Time of Note DATE: 06/01/17 TIME: 06:13 Assessment/Plan VTE Prophylaxis VTE Prophylaxis Intervention: SCD's Lines/Catheters IV Catheter Type (from [facility]): Peripheral IV Assessment/Plan Chief Complaint/Hosp Course This is a 57-year-old male being admitted to the [facility] floor for: #1 small bowel obstruction: Likely secondary to adhesions from previous colon surgery. At the current time we will keep the patient n.p.o., NG tube was placed however on x-ray recommendation was to advance it will advance and get a repeat x-ray. IV fluid hydration with normal saline. Zofran for nausea. General surgery was consulted via the ED. #2 hypertension: At the current time we will continue monitor patient blood pressure will hold patient's home medication secondary to patient being n.p.o. As needed hydralazine #3 diabetes: We will repeat a hemoglobin A1c, keep patient n.p.o. at this time. Insulin sliding scale #4 BPH: Resume home medications once SBO is resolved #5 gout: Stable at this time. #6 hyperlipidemia: We will check lipid panel. Resume home medications once patient is tolerating diet #7 DVT and GI prolapses: SCDs, Protonix Further treatment strategy will be implemented as per the clinical course Problems: HPI/ROS Admit Date/Time Admit Date/Time May 31, 2017 at 23:51 Hx of Present Illness Chief complaint: Abdominal pain This is a 57-year-old male with a past medical history of hypertension, persistent tobacco and alcohol abuse, and colon cancer status post resection who presents to the ER with mid abdominal pain that started this morning. Patient states that abdominal pain is intermittent but severe, so sedated with nausea and nonbilious/nonbloody vomiting. He also endorses loose stools recently, and had a watery episode this evening. He denies any fevers or chills. He denies headache or vision changes. He denies chest pain or trouble breathing. He denies back pain. He denies any testicular pain. He denies any urinary frequency or dysuria. He denies any flank pain. Allergies: Shellfish Medications: See GILBERTO ALCANTAR Const: As per HPI Eyes : No pain discharge or redness or change in visual acuity ENT: No pain, sore throat, congestion, congestion, dysphagia or discharge Respiratory: No shortness of breath, cough, sputum, wheezing, or pleuritic pain Cardiovascular: No chest pain, palpitation, PND, or edema GI : As per HPI Genitourinary: No dysuria, hematuria, flank pain , discharge or CVA tenderness Musculoskeletal: No joint pain, back pain, neck pain, restricted range of motion in neck or joints Skin: No rash, bruising or hives Neuro: No headache, dizziness, syncope, seizure, focal weakness Endocrine: No polyuria, polydipsia, temperature intolerance Psych: No hallucination, depression, anxiety or suicidal ideation PMH/Family/Social Past Medical History History of colon cancer, hypertension, diabetes, gout, BPH, hyperlipidemia Past Surgical History Right hip surgery, colon resection Family History Significant Family History: cancer Social History Alcohol Use: occasionally Smoking Status: Current every day smoker (Half pack per day 30 years) Drug Use: none Exam/Review of Systems Vital Signs Vitals Vital Signs Date Time Temp Pulse Resp B/P Pulse Ox O2 Delivery O2 Flow Rate FiO2 06/01/17 01:40 99.4 88 18 107/80 94 06/01/17 01:14 Room Air Intake and Output 05/31/17 05/31/17 06/01/17 15:00 23:00 07:00 Intake Total 210 ml Balance 210 ml Exam Exam General: Patient is a pleasant male sleeping in bed easily arousable in no acute distress HEENT: Atraumatic, normocephalic. The pupils are equal, round and reactive. Extraocular motor are intact, NG tube in place Neck: Supple with full range of motion. No rigidity or meningismus Chest: Nontender Lungs: Clear to auscultation bilaterally no crackles rales or wheezing Heart: Normal S1-S2, Regular rhythm and rate. No murmur, S3, or S4 Abdomen: Soft, mild tenderness over the epigastric region, no distention, hypoactive bowel sounds Extremities: Normal to inspection, no edema no cyanosis Neurologic: Normal mental status, speech normal, cranial nerves II through XII are intact, motor and sensory are intact, no focal weakness Additional Comments ROCEDURE: CT Abdomen and Pelvis without contrast. CLINICAL INDICATION: Abdominal and pelvic pain. TECHNIQUE: CT scan of the abdomen and pelvis without contrast was performed. Coronal and sagittal reformatted images were obtained from the axial source images. Images were reviewed on a high-resolution PACS workstation. Total exam DLP is 474.81 mGy-cm. CTDIvol is 7.66 mGy. One or more of the following dose reduction techniques were used: Automated exposure control, adjustment of the mA and/or kV according to patient size, use of iterative reconstruction technique. COMPARISON: None. FINDINGS: The lung bases are normal. There is no pleural effusion. There is scarring at both lung bases. There is a small benign calcified granuloma in the right lower lobe medially. The lung bases are otherwise normal. There is no pleural effusion or pericardial effusion. The gallbladder and bile ducts are normal. The spleen is normal in size. There is no focal splenic lesion. Both adrenals are normal with no enlargement or mass. The pancreas is unremarkable with no mass or evidence of pancreatitis. There is no renal mass or hydronephrosis. There is no renal calculus or ureteral calculus. The abdominal aorta is not dilated. There is calcification in the aorta consistent with atherosclerosis. There is no retroperitoneal lymphadenopathy or mass. There is no pelvic lymphadenopathy or mass. The bladder and distal ureters are normal. There has been prior bowel surgery with multiple eagle in the right lower quadrant. There is small bowel obstruction with multiple dilated loops of small bowel distally with air-fluid levels. Dilated small bowel measures up to 4.3 cm in diameter. No definite transition point is visualized. There is diverticulosis of the colon without evidence of diverticulitis. A small amount of free fluid is present in the pelvis. There is no free air. There are degenerative changes of the spine. There is heterotopic bone formation adjacent to the right acetabulum. The osseous structures are otherwise unremarkable. IMPRESSION: 1. Scarring at the lung bases. 2. Benign calcified granuloma in the right lower lobe medially. 3. Atherosclerosis. 4. Prior bowel surgery with multiple eagle in the right lower quadrant. 5. Small bowel obstruction with no definite transition point visualized. 6. Diverticulosis of the colon without evidence of diverticulitis. 7. Small amount of free fluid in the pelvis. No free air. 8. Degenerative changes of the spine. 9. Heterotopic bone formation adjacent to the right acetabulum. RPTAT: QQ .Pranav Gallo MD, Date Time Electronically viewed and signed by .Pranav Gallo MD, MD on 05/31/2017 20:54 .R/ CC: DARREL WILCOX PROCEDURE: Chest. CLINICAL INDICATION: Chest pain. TECHNIQUE: Single frontal view of the chest was obtained. COMPARISON: 11/30/2016. FINDINGS: There is a nasogastric tube extending to the gastroesophageal junction P The cardiac silhouette is magnified. The aortic arch is unremarkable. There is mild bibasilar atelectasis and scarring. There is no focal consolidation, vascular congestion or pleural effusion. There is no pneumothorax. IMPRESSION: Nasogastric tube extending to the gastroesophageal junction. Further advancement is needed. Mild bibasilar atelectasis and scarring. .Eldon Nelson MD, MD Date Time Electronically viewed and signed by .Eldon Nelson MD, on 06/01/2017 01:30 .T/ CC: TONE SALAZAR MD Labs Result Diagram: 06/01/17 0505 05/31/17 2045 Medications Medications Current Medications Sodium Chloride (NS) 1,000 ml @ 70 mls/hr [id number] IV Last administered on 06/01 02:28; Admin Dose 70 MLS/HR; Start 06/01/17 at 01:16 Ondansetron HCl (Zofran Inj) 4 mg Q6H PRN IV NAUSEA AND/OR VOMITING; Start at 01:30 Acetaminophen (Tylenol Supp) 650 mg Q6H PRN [place] PAIN LEVEL 1-3 OR FEVER; Start 06/01/17 at 01:30 Morphine Sulfate (morphine) 2 mg Q4H PRN IV SEVERE PAIN LEVEL 7-10 Last administered on 06/01/17 02:28; Admin Dose 2 MG; Start 06/01/17 at 01:30 Pantoprazole (Protonix Iv) 40 mg DAILY@06 IV Last administered on 9/23/17at 05: 23; Admin Dose 40 MG; Start 06/01/17 at 06:00 Insulin Aspart (Novolog Insulin Pen) NOVOLOG *MILD* ALGORI... Q4 SC ; Start at 05:00 Hydralazine HCl (Apresoline) 10 mg Q6H PRN IV ELEVATED BLOOD PRESSURE; Start at 01:30 Miscellaneous Information 1 ea NOTE XX ; Start 06/01/17 at 01:30 Glucose (Glutose) 15 gm Q15M PRN PO DECREASED GLUCOSE; Start 06/01/17 at 01:30 Glucose (Glutose) 22.5 gm Q15M PRN PO DECREASED GLUCOSE; Start 06/01/17 at 01: 30 Dextrose (D50w Syringe) 25 ml Q15M PRN IV DECREASED GLUCOSE; Start 06/01/17 at 01:30 Dextrose (D50w Syringe) 50 ml Q15M PRN IV DECREASED GLUCOSE; Start 06/01/17 at 01:30 Glucagon (Glucagen) 1 mg Q15M PRN IM DECREASED GLUCOSE; Start 06/01/17 at 01:30 Glucose (Glutose) 15 gm Q15M PRN BUCCAL DECREASED GLUCOSE; Start 06/01/17 at 01 :30 CATHERINE KENT Jun 01, 2017 06:21
[2017-06-01 06:22] LABS: ALBUMIN 3.6 g/dl (3.3-4.9); ALBUMIN/GLOBULIN RATIO 1.12; BILIRUBIN,INDIRECT 0.8 mg/dl (0-1.1); BILIRUBIN,TOTAL 0.8 mg/dl (0.2-1.3); CALCIUM 8.5 mg/dl (8.4-10.2); CREATININE 1.02 mg/dl (0.61-1.24); MAGNESIUM 1.8 mg/dl (1.7-2.5); PHOSPHORUS 5.2 mg/dl (2.5-4.9); POTASSIUM 3.1 mmol/L (3.5-5.1); TOTAL PROTEIN 6.8 g/dl (6.1-8.1)
[2017-06-01 08:11] VITALS: BP 126/80; RESP 18
[2017-06-01 08:16] LABS: THYROID STIMULATING HORMONE 0.413 MIU/L (0.465-4.680)
--- NOTE | 2017-06-01 09:02 | CONS ---
Date/Time of Note Date/Time of Note DATE: 06/01/17 TIME: 08:55 Assessment/Plan Assessment/Plan Chief Complaint/Hosp Course 57-year-old male with small bowel obstruction * Likely secondary to adhesions from prior surgery * Given patient's stability a trial of nonoperative conservative management is warranted * Continue nasogastric tube decompression. X-ray reviewed, the tube needs to be advanced. I discussed this with the nurse. * Continue IV fluid hydration. Will order fluid bolus. * Replace electrolytes * Pain control as needed * Will order small bowel follow-through for further diagnostic and therapeutic purposes. The above was discussed with the patient and the nurse. I ensured that all of the questions of the patient were answered. Further recommendations will be made based on clinical course and results of diagnostic studies. Problems: Consultation Date/Type/Reason Admit Date/Time May 31, 2017 at 23:51 Date of Consultation: Jun 01, 2017 Type of Consultation: GENERAL SURGERY Reason for Consultation Small bowel obstruction Hx of Present Illness The patient is a 57-year-old -[place] male with a past medical history of hypertension, diabetes, tobacco and alcohol abuse, and colon cancer status post resection in 1995 who presented to the ER with complaints of mid abdominal pain that started the morning of admission. Patient states that abdominal pain was intermittent but severe. There have been multiple episodes of nausea and nonbilious emesis. He states his last bowel movement was yesterday. He has been passing gas. He denies any fevers or chills. He denies chest pain or trouble breathing. He denies any similar episodes of pain in the past. On arrival to the emergency room the patient was found to be hemodynamically stable. A CT scan of the abdomen and pelvis which was done showed dilated loops of small bowel without a definitive transition point. He has since had a nasogastric tube inserted by emergency room staff. He states his pain is currently improved and tolerable. A 14 point review of systems was conducted and was negative except for that which is mentioned in HPI Past Medical History Medical History: cancer, diabetes, hypertension, other (Gout) Past Surgical History Colon resection for colon cancer in 1995 Family History Significant Family History: no pertinent family hx Social History Alcohol Use: occasionally Smoking Status: Current every day smoker (Half pack per day 30 years) Drug Use: none Exam/Review of Systems Vital Signs Vitals Vital Signs Date Time Temp Pulse Resp B/P Pulse Ox O2 Delivery O2 Flow Rate FiO2 9/23/17 08:11 99.6 98 18 126/80 90 06/01/17 01:14 Room Air Intake and Output 05/31/17 05/31/17 06/01/17 15:00 23:00 07:00 Intake Total 210 ml Balance 210 ml Exam GENERAL: Awake, alert, oriented x 3. No acute distress. SKIN: No jaundice. HEENT: Nasogastric tube is in place with scant clear drainage NECK: Supple without JVD CARDIOVASCULAR: S1S2, regular rate and rhythm. No murmurs appreciated. RESPIRATORY: Clear to auscultation bilaterally. ABDOMEN: Soft, bowel sounds hypoactive, nondistended, there is mild diffuse tenderness to palpation, worse in the left midabdomen. There is no rebound, guarding or evidence of peritonitis. There is a healed midline incision from prior surgery. There are no palpable hernias. EXTREMITIES: Free range of motion x 4. No cyanosis, edema, or clubbing. NEUROLOGIC: Cranial nerves II-XII are intact. Sensation is intact grossly. Results Result Diagram: 06/01/17 0505 06/01/17 0505 Results 24 hrs Laboratory Tests Test 05/31/17 19:49 05/31/17 20:45 05/31/17 23:44 06/01/17 05:05 White Blood Count 10.6 # 6.1 # Red Blood Count 5.71 5.11 Hemoglobin 17.4 15.3 Hematocrit 47.8 42.0 Mean Corpuscular Volume 83.7 82.2 Mean Corpuscular Hemoglobin 30.5 29.9 Mean Corpuscular Hemoglobin Concent 36.4 36.4 Red Cell Distribution Width 13.2 12.2 Platelet Count 310 300 Mean Platelet Volume 10.6 #H 9.9 Neutrophils % 84.0 H 59.9 Lymphocytes % 10.4 L 26.0 Monocytes % 4.4 12.9 H Eosinophils % 0.3 0.5 Basophils % 0.4 0.5 Nucleated Red Blood Cells % 0.0 0.0 Neutrophils # 8.9 H 3.6 Lymphocytes # 1.1 1.6 Monocytes # 0.5 0.8 Eosinophils # 0.0 0.0 Basophils # 0.0 0.0 Nucleated Red Blood Cells # 0.0 0.0 Sodium Level 134 L 136 Potassium Level 3.5 3.1 L Chloride Level 95 L 98 Carbon Dioxide Level 24 28 Anion Gap 19 H 13 Blood Urea Nitrogen 18 19 Creatinine 0.99 1.02 Glucose Level 115 106 Calcium Level 8.9 8.5 Total Bilirubin 0.7 0.8 Direct Bilirubin 0.00 0.00 Indirect Bilirubin 0.7 0.8 Aspartate Amino Transf (AST/SGOT) 32 28 Alanine Aminotransferase (ALT/SGPT) 34 33 Alkaline Phosphatase 91 85 Total Protein 7.6 6.8 Albumin 4.2 3.6 Globulin 3.40 H 3.20 Albumin/Globulin Ratio 1.23 1.12 Lipase 48 Urine Color YELLOW Urine Clarity CLEAR Urine pH 5.0 Urine Specific Henefer 1.013 Urine Ketones 1+ H Urine Nitrite NEGATIVE Urine Bilirubin NEGATIVE Urine Urobilinogen NEGATIVE Urine Leukocyte Esterase NEGATIVE Urine Microscopic RBC 1 Urine Microscopic WBC 0 Urine Hemoglobin NEGATIVE Urine Glucose NEGATIVE Urine Total Protein 2+ H Hemoglobin A1c 7.4 H Phosphorus Level 5.2 H Magnesium Level 1.8 Triglycerides Level 101 Cholesterol Level 120 LDL Cholesterol, Calculated 40 HDL Cholesterol 60 Cholesterol/HDL Ratio 2.0 Thyroid Stimulating Hormone (TSH) 0.413 L Test 06/01/17 05:22 06/01/17 08:24 Bedside Glucose 115 105 Medications Medications Current Medications Sodium Chloride (NS) 1,000 ml @ 70 mls/hr [id number] IV Last administered on 06/01 02:28; Admin Dose 70 MLS/HR; Start 06/01/17 at 01:16 Ondansetron HCl (Zofran Inj) 4 mg Q6H PRN IV NAUSEA AND/OR VOMITING; Start at 01:30 Acetaminophen (Tylenol Supp) 650 mg Q6H PRN [place] PAIN LEVEL 1-3 OR FEVER; Start 06/01/17 at 01:30 Morphine Sulfate (morphine) 2 mg Q4H PRN IV SEVERE PAIN LEVEL 7-10 Last administered on 06/01/17 06:43; Admin Dose 2 MG; Start 06/01/17 at 01:30 Pantoprazole (Protonix Iv) 40 mg DAILY@06 IV Last administered on 06/01/17 05: 23; Admin Dose 40 MG; Start 06/01/17 at 06:00 Insulin Aspart (Novolog Insulin Pen) NOVOLOG *MILD* ALGORI... Q4 SC ; Start at 05:00 Hydralazine HCl (Apresoline) 10 mg Q6H PRN IV ELEVATED BLOOD PRESSURE; Start at 01:30 Miscellaneous Information 1 ea NOTE XX ; Start 06/01/17 at 01:30 Glucose (Glutose) 15 gm Q15M PRN PO DECREASED GLUCOSE; Start 06/01/17 at 01:30 Glucose (Glutose) 22.5 gm Q15M PRN PO DECREASED GLUCOSE; Start 06/01/17 at 01: 30 Dextrose (D50w Syringe) 25 ml Q15M PRN IV DECREASED GLUCOSE; Start 06/01/17 at 01:30 Dextrose (D50w Syringe) 50 ml Q15M PRN IV DECREASED GLUCOSE; Start 06/01/17 at 01:30 Glucagon (Glucagen) 1 mg Q15M PRN IM DECREASED GLUCOSE; Start 06/01/17 at 01:30 Glucose 15 gm 15 gm Q15M PRN BUCCAL DECREASED GLUCOSE; Start 06/01/17 at 01:30 Potassium Chloride (KCl 40 MEQ/250 ML NS) 250 ml @ 62.5 mls/hr Q4H IVPB ; Start 06/01/17 at 10:30; Stop 06/01/17 at 18:29 Procedures Procedures PROCEDURE: CT Abdomen and Pelvis without contrast. CLINICAL INDICATION: Abdominal and pelvic pain. TECHNIQUE: CT scan of the abdomen and pelvis without contrast was performed. Coronal and sagittal reformatted images were obtained from the axial source images. Images were reviewed on a high-resolution PACS workstation. Total exam DLP is 474.81 mGy-cm. CTDIvol is 7.66 mGy. One or more of the following dose reduction techniques were used: Automated exposure control, adjustment of the mA and/or kV according to patient size, use of iterative reconstruction technique. COMPARISON: None. FINDINGS: The lung bases are normal. There is no pleural effusion. There is scarring at both lung bases. There is a small benign calcified granuloma in the right lower lobe medially. The lung bases are otherwise normal. There is no pleural effusion or pericardial effusion. The gallbladder and bile ducts are normal. The spleen is normal in size. There is no focal splenic lesion. Both adrenals are normal with no enlargement or mass. The pancreas is unremarkable with no mass or evidence of pancreatitis. There is no renal mass or hydronephrosis. There is no renal calculus or ureteral calculus. The abdominal aorta is not dilated. There is calcification in the aorta consistent with atherosclerosis. There is no retroperitoneal lymphadenopathy or mass. There is no pelvic lymphadenopathy or mass. The bladder and distal ureters are normal. There has been prior bowel surgery with multiple eagle in the right lower quadrant. There is small bowel obstruction with multiple dilated loops of small bowel distally with air-fluid levels. Dilated small bowel measures up to 4.3 cm in diameter. No definite transition point is visualized. There is diverticulosis of the colon without evidence of diverticulitis. A small amount of free fluid is present in the pelvis. There is no free air. There are degenerative changes of the spine. There is heterotopic bone formation adjacent to the right acetabulum. The osseous structures are otherwise unremarkable. IMPRESSION: 1. Scarring at the lung bases. 2. Benign calcified granuloma in the right lower lobe medially. 3. Atherosclerosis. 4. Prior bowel surgery with multiple eagle in the right lower quadrant. 5. Small bowel obstruction with no definite transition point visualized. 6. Diverticulosis of the colon without evidence of diverticulitis. 7. Small amount of free fluid in the pelvis. No free air. 8. Degenerative changes of the spine. 9. Heterotopic bone formation adjacent to the right acetabulum. RPTAT: QQ .Pranav Gallo MD, MD Date Time Electronically viewed and signed by .Pranav Gallo MD, on 05/31/2017 20:54 .R/ CC: DARREL WILCOX,TONE Gimenez MD Jun 01, 2017 09:02
[2017-06-01] MEDS ORDERED: SOD CHLORIDE 0.9% 1,000 ML IV ONE ×2 (09:30)
[2017-06-01] MEDS: POTASSIUM CHLORIDE 250 ML IVPB SCH ×2 (10:03→20:47)
--- NOTE | 2017-06-01 11:50 | RADRPT ---
PROCEDURE: XR Chest. CLINICAL INDICATION: NG tube placement TECHNIQUE: Single frontal view of the chest was obtained. COMPARISON: Earlier examination the same day FINDINGS: The cardiomediastinal silhouette is normal size. Pulmonary vasculature is within normal limits. Th ere is mild prominence of interstitial markings. There is a nasogastric tube which terminates at or minimally past the esophagogastric junction. There is a side port projecting approximately 4 cm abov e the diaphragm.. No signs of pleural fluid or pneumothorax are seen. The osseous structures and soft tissues are unre markable. IMPRESSION: 1. Nasogastric tube extending to the esophagogastric junction region. This may be advanced approxim ately 10 cm. This finding is being communicated to the patient's nurse. 2. No visualized consolidation or edema. RPTAT: QQ .Richard Valle MD, Date Time Electronically viewed and signed by .Richard Valle MD, on 06/01/2017 11:49 .T/
[2017-06-01] MEDS: NS + KCL 20 MEQ 1,000 ML IV SCH ×2 (12:36→18:36)
[2017-06-01] MEDS ORDERED: DIATR MEGLU/DIATRIZOATE SODIUM 120 ML BTL ONE (13:31)
--- NOTE | 2017-06-01 14:25 | PN ---
Date/Time of Note Date/Time of Note DATE: 06/01/17 TIME: 14:17 Assessment/Plan VTE Prophylaxis VTE Prophylaxis Intervention: SCD's Lines/Catheters IV Catheter Type (from Nrsg): Peripheral IV Urinary Cath still in place: No Assessment/Plan Assessment/Plan 1. SBO - most likely secondary to adhesions given h/o colon surgery - Surgery on board and recommendations appreciated. Small bowel follow through ordered and will continue conservative management at this time - NG tube in place and needs to be advanced - Continue NPO status, IVF and Zofran 2. HTN - stable - Will resume home meds once tolerating PO 3. DM - A1c 7.4 - Holding home metformin - ISS and accu checks 4. BPH - monitor - resume home med when tolerating PO 5. Gout - Stable at this time. 6. HLD - resume statin once tolerating PO Subjective 24 Hr Interval Summary Free Text/Dictation patient resting comfortably. States feels as if abdominal discomfort is improving since NG tube in place. Concerned why it was not placed correcting in the first place but explained why. Patient c/o irritation of throat due to NG but denies any new complaints or acute overnight events. Patient admits to passing a good amount of gas this am but no BM Exam/Review of Systems Vital Signs Vitals Vital Signs Date Time Temp Pulse Resp B/P Pulse Ox O2 Delivery O2 Flow Rate FiO2 06/01/17 08:11 99.6 98 18 126/80 90 06/01/17 01:14 Room Air Intake and Output 05/31/17 05/31/17 06/01/17 15:00 23:00 07:00 Intake Total 210 ml Balance 210 ml Exam General: Resting comfortable, easily arousable. No acute distress HEENT: NC/AT. PERRL. EOM intact, NG tube in place Neck: Supple with full range of motion. Lungs: Clear to auscultation bilaterally no crackles rales or wheezing Heart: Normal S1-S2, Regular rhythm and rate. No murmurs Abdomen: Soft, mild tenderness over the epigastric region, no distention, hypoactive bowel sounds Extremities: Normal to inspection, no edema no cyanosis Results Result Diagram: 06/01/17 0505 06/01/17 0505 Results 24 hrs Laboratory Tests Test 05/31/17 19:49 05/31/17 20:45 05/31/17 23:44 06/01/17 05:05 White Blood Count 10.6 # 6.1 # Red Blood Count 5.71 5.11 Hemoglobin 17.4 15.3 Hematocrit 47.8 42.0 Mean Corpuscular Volume 83.7 82.2 Mean Corpuscular Hemoglobin 30.5 29.9 Mean Corpuscular Hemoglobin Concent 36.4 36.4 Red Cell Distribution Width 13.2 12.2 Platelet Count 310 300 Mean Platelet Volume 10.6 #H 9.9 Neutrophils % 84.0 H 59.9 Lymphocytes % 10.4 L 26.0 Monocytes % 4.4 12.9 H Eosinophils % 0.3 0.5 Basophils % 0.4 0.5 Nucleated Red Blood Cells % 0.0 0.0 Neutrophils # 8.9 H 3.6 Lymphocytes # 1.1 1.6 Monocytes # 0.5 0.8 Eosinophils # 0.0 0.0 Basophils # 0.0 0.0 Nucleated Red Blood Cells # 0.0 0.0 Sodium Level 134 L 136 Potassium Level 3.5 3.1 L Chloride Level 95 L 98 Carbon Dioxide Level 24 28 Anion Gap 19 H 13 Blood Urea Nitrogen 18 19 Creatinine 0.99 1.02 Glucose Level 115 106 Calcium Level 8.9 8.5 Total Bilirubin 0.7 0.8 Direct Bilirubin 0.00 0.00 Indirect Bilirubin 0.7 0.8 Aspartate Amino Transf (AST/SGOT) 32 28 Alanine Aminotransferase (ALT/SGPT) 34 33 Alkaline Phosphatase 91 85 Total Protein 7.6 6.8 Albumin 4.2 3.6 Globulin 3.40 H 3.20 Albumin/Globulin Ratio 1.23 1.12 Lipase 48 Urine Color YELLOW Urine Clarity CLEAR Urine pH 5.0 Urine Specific [place] 1.013 Urine Ketones 1+ H Urine Nitrite NEGATIVE Urine Bilirubin NEGATIVE Urine Urobilinogen NEGATIVE Urine Leukocyte Esterase NEGATIVE Urine Microscopic RBC 1 Urine Microscopic WBC 0 Urine Hemoglobin NEGATIVE Urine Glucose NEGATIVE Urine Total Protein 2+ H Hemoglobin A1c 7.4 H Phosphorus Level 5.2 H Magnesium Level 1.8 Triglycerides Level 101 Cholesterol Level 120 LDL Cholesterol, Calculated 40 HDL Cholesterol 60 Cholesterol/HDL Ratio 2.0 Thyroid Stimulating Hormone (TSH) 0.413 L Test 06/01/17 05:22 06/01/17 08:24 06/01/17 12:40 Bedside Glucose 115 105 110 Medications Medications Current Medications Ondansetron HCl (Zofran Inj) 4 mg Q6H PRN IV NAUSEA AND/OR VOMITING; Start at 01:30 Acetaminophen (Tylenol Supp) 650 mg Q6H PRN [place] PAIN LEVEL 1-3 OR FEVER; Start 06/01/17 at 01:30 Morphine Sulfate (morphine) 2 mg Q4H PRN IV SEVERE PAIN LEVEL 7-10 Last administered on 06/01/17 12:01; Admin Dose 2 MG; Start 06/01/17 at 01:30 Pantoprazole (Protonix Iv) 40 mg DAILY@06 IV Last administered on 06/01/17 05: 23; Admin Dose 40 MG; Start 06/01/17 at 06:00 Insulin Aspart (Novolog Insulin Pen) NOVOLOG *MILD* ALGORI... Q4 SC ; Start at 05:00 Hydralazine HCl (Apresoline) 10 mg Q6H PRN IV ELEVATED BLOOD PRESSURE; Start at 01:30 Miscellaneous Information 1 ea NOTE XX ; Start 06/01/17 at 01:30 Glucose (Glutose) 15 gm Q15M PRN PO DECREASED GLUCOSE; Start 06/01/17 at 01:30 Glucose (Glutose) 22.5 gm Q15M PRN PO DECREASED GLUCOSE; Start 06/01/17 at 01: 30 Dextrose (D50w Syringe) 25 ml Q15M PRN IV DECREASED GLUCOSE; Start 06/01/17 at 01:30 Dextrose (D50w Syringe) 50 ml Q15M PRN IV DECREASED GLUCOSE; Start 06/01/17 at 01:30 Glucagon (Glucagen) 1 mg Q15M PRN IM DECREASED GLUCOSE; Start 06/01/17 at 01:30 Glucose 15 gm 15 gm Q15M PRN BUCCAL DECREASED GLUCOSE; Start 06/01/17 at 01:30 Potassium Chloride 250 ml @ 62.5 mls/hr Q4H IVPB Last administered on 10:03; Admin Dose 62.5 MLS/HR; Start 06/01/17 at 10:30; Stop 06/01/17 at 18 :29 Potassium Chloride/Sodium Chloride (NS-KCl 20 Meq) 1,000 ml @ 110 mls/hr Q9H6M IV Last administered on 06/01/17 12:36; Admin Dose 110 MLS/HR; Start 06/01/17 at 09:30 Phenol (Chloraseptic Throat [place]) 2 spray Q2H PRN [place] SORE THROAT; Start at 12:00 IDRIS MURPHY MD Jun 01, 2017 14:25
[2017-06-01 15:49] VITALS: BP 161/100; RESP 18
[2017-06-01] MEDS: PHENOL 1.4% SOLN 180 ML BTL MT PRN (16:09)
[2017-06-01] MEDS: hydrALAzine 20 MG INJ IV PRN (16:09)
--- NOTE | 2017-06-01 16:31 | RADRPT ---
PROCEDURE: XR small-bowel follow-through. CLINICAL INDICATION: 57 years of age, male. Abdominal pain. TECHNIQUE: Preliminary supine radiograph of the abdomen is provided. Seven radiographs were obtained following the administration of oral contrast. Final images obtained at 90 minutes. COMPARISON: CT abdomen pelvis May 31, 2017 FINDINGS: Preliminary frontal radiograph of the abdomen demonstrates dilated loops of small bowel in the centr al abdomen measuring up to 4.5 cm. There is an enteric tube in the stomach. There is gas in nondiste nded descending colon. There are a surgical sutures in the right lower quadrant for right hemicolect [place]. There is heterotopic ossification involving the right acetabulum and proximal right femur from remote trauma. Contrast administered through an enteric tube reaches the colon at 90 minutes. Small bowel loops are diffusely dilated and measure up to 5.4 cm in the left lower quadrant. Small bowel loops demonstrat e normal contour and mucosal detail. Colon is decompressed. A precise zone of transition is not iden tified. Fluoroscopy was not performed and the exam does not evaluate small bowel peristalsis. IMPRESSION: Diffuse dilatation of small bowel with filling of the colon at 90 minutes may be due to an ileus or low grade partial distal small bowel obstruction. Surgical sutures right lower quadrant from prior right hemicolectomy. RPTAT: HCTS Physician Rena Date Time Electronically viewed and signed by Physician Rena on 06/01/2017 16:30 CS/
[2017-06-01 16:50] VITALS: BP 157/86; RESP 18
[2017-06-01 20:00] VITALS: BP 142/81; RESP 20
[2017-06-02] MEDS: INSULIN ASPART [NOVOLOG] 3 ML PEN SC SCH ×6 (01:00→20:51)
[2017-06-02] MEDS: morphine 2 MG INJ IV PRN ×4 (01:11→20:49)
[2017-06-02 02:00] VITALS: BP 158/101; RESP 20
[2017-06-02] MEDS: hydrALAzine 20 MG INJ IV PRN (03:13)
[2017-06-02] MEDS: NS + KCL 20 MEQ 1,000 ML IV SCH ×3 (03:39→12:48)
[2017-06-02 05:26] LABS: BASOPHILS % 0.7 % (0.0-2.0); EOSINOPHILS # 0.1 10^3/ul (0.0-0.5); HEMOGLOBIN 15.6 g/dl (14.0-18.0); LYMPHOCYTES # 1.2 10^3/ul (0.8-2.9); LYMPHOCYTES % 19.9 % (15.0-51.0); MEAN CORPUSCULAR HGB CONC 36.3 g/dl (32.0-37.0); MEAN CORPUSCULAR VOLUME 82.7 fl (82.0-101.0); MEAN PLATELET VOLUME 9.5 fl (7.4-10.4); MONOCYTE # 0.7 10^3/ul (0.3-0.9); MONOCYTES % 11.9 % (0.0-11.0); NEUTROPHIL # 4.1 10^3/ul (1.6-7.5); NEUTROPHILS % 66.2 % (39.0-77.0); PLATELET COUNT 274 10^3/UL (140-415); RED CELL DISTRIBUTION WIDTH 12.3 % (11.5-14.5); WHITE BLOOD COUNT 6.1 10^3/ul (4.8-10.8)
[2017-06-02] MEDS: PANTOPRAZOLE 40 MG INJ IV SCH (05:42)
[2017-06-02 05:50] LABS: CREATININE 0.99 mg/dl (0.61-1.24); POTASSIUM 3.6 mmol/L (3.5-5.1)
[2017-06-02 08:00] VITALS: BP 143/87; RESP 18
[2017-06-02] MEDS: PHENOL 1.4% SOLN 180 ML BTL MT PRN (08:43)
--- NOTE | 2017-06-02 13:36 | PN ---
Date/Time of Note Date/Time of Note DATE: 06/02/17 TIME: 13:34 Assessment/Plan Lines/Catheters IV Catheter Type (from Nrs): Peripheral IV Mitchell in Place (from Nrs): No Assessment/Plan Assessment/Plan 57-year-old male with small bowel obstruction * Resolved * Small bowel follow-through shows contrast into the colon at 90 minutes * DC NG tube * Advance to clear liquid diet. Advance diabetic diet as tolerated. * Possible discharge home in a.m. if remains stable and tolerates diet Subjective 24 Hr Interval Summary Says he feels "100% better". Denies abdominal pain. Passing bowel movements. Afebrile. Exam/Review of Systems Vital Signs Vitals Vital Signs Date Time Temp Pulse Resp B/P Pulse Ox O2 Delivery O2 Flow Rate FiO2 06/02/17 08:00 98.6 109 18 143/87 94 06/01/17 16:50 Nasal Cannula 2.0 Intake and Output 06/01/17 06/01/17 06/02/17 15:00 23:00 07:00 Intake Total 1200 ml 250 ml 1000 ml Output Total 1025 ml 400 ml Balance 1200 ml -775 ml 600 ml Exam Free Text/Dictation GENERAL: Awake, alert, oriented x 3. No acute distress. HEENT: Nasogastric tube is in place CARDIOVASCULAR: S1S2, regular rate and rhythm. No murmurs appreciated. RESPIRATORY: Clear to auscultation bilaterally. ABDOMEN: Soft, bowel sounds present, nondistended, nontender to palpation. There is a healed midline incision from prior surgery. There are no palpable hernias. EXTREMITIES: Free range of motion x 4. No cyanosis, edema, or clubbing. Results Result Diagram: 06/02/17 0505 06/02/17 0505 TONE CONDON MD Jun 02, 2017 13:36
[2017-06-02 15:01] VITALS: BP 164/91; RESP 18
--- NOTE | 2017-06-02 16:10 | PN ---
Date/Time of Note Date/Time of Note DATE: 06/02/17 TIME: 16:05 Assessment/Plan VTE Prophylaxis VTE Prophylaxis Intervention: ambulation, SCD's Lines/Catheters IV Catheter Type (from Nrs): Peripheral IV Urinary Cath still in place: No Assessment/Plan Assessment/Plan 1. SBO- resolving - Surgery on board and recommendations appreciated. NG tube removed this am and will start on clear liquid diet. Advance as tolerated - most likely secondary to adhesions given h/o colon surgery 2. HTN - stable - home medications resumed 3. DM - A1c 7.4 - patient insisting on taking home medication, Metformin - ISS and accu checks 4. BPH - monitor 5. Gout - Stable at this time. 6. HLD resumed 7. Will continue advance to diabetic diet. If tolerating, can be discharged in am Subjective 24 Hr Interval Summary Free Text/Dictation Patient doing well and states no longer experiencing abdominal pain. He is passing gas and having multiple bowel movements. He was complaining of discomfort in back of throat due to NG tube. Exam/Review of Systems Vital Signs Vitals Vital Signs Date Time Temp Pulse Resp B/P Pulse Ox O2 Delivery O2 Flow Rate FiO2 06/02/17 15:01 98.9 99 18 164/91 96 06/01/17 16:50 Nasal Cannula 2.0 Intake and Output 06/01/17 06/01/17 06/02/17 15:00 23:00 07:00 Intake Total 1200 ml 250 ml 1000 ml Output Total 1025 ml 400 ml Balance 1200 ml -775 ml 600 ml Exam General: Resting comfortable, easily arousable. No acute distress HEENT: NC/AT. PERRL. EOM intact, NG tube in place Neck: Supple with full range of motion. Lungs: Clear to auscultation bilaterally no crackles rales or wheezing Heart: Normal S1-S2, Regular rhythm and rate. No murmurs Abdomen: Soft, non tender, no distention, hypoactive bowel sounds Extremities: Normal to inspection, no edema no cyanosis Results Result Diagram: 06/02/17 0505 06/02/17 0505 Results 24 hrs Laboratory Tests Test 06/01/17 17:41 06/01/17 20:48 06/02/17 01:08 06/02/17 04:27 Bedside Glucose 110 106 87 81 Test 06/02/17 05:05 06/02/17 08:37 06/02/17 15:10 White Blood Count 6.1 Red Blood Count 5.20 Hemoglobin 15.6 Hematocrit 43.0 Mean Corpuscular Volume 82.7 Mean Corpuscular Hemoglobin 30.0 Mean Corpuscular Hemoglobin Concent 36.3 Red Cell Distribution Width 12.3 Platelet Count 274 Mean Platelet Volume 9.5 Neutrophils % 66.2 Lymphocytes % 19.9 Monocytes % 11.9 H Eosinophils % 1.0 Basophils % 0.7 Nucleated Red Blood Cells % 0.0 Neutrophils # 4.1 Lymphocytes # 1.2 Monocytes # 0.7 Eosinophils # 0.1 Basophils # 0.0 Nucleated Red Blood Cells # 0.0 Sodium Level 144 Potassium Level 3.6 Chloride Level 108 # Carbon Dioxide Level 27 Anion Gap 13 Blood Urea Nitrogen 14 Creatinine 0.99 Glucose Level 85 Calcium Level 9.0 Bedside Glucose 96 235 H Medications Medications Current Medications Ondansetron HCl (Zofran Inj) 4 mg Q6H PRN IV NAUSEA AND/OR VOMITING; Start at 01:30 Acetaminophen (Tylenol Supp) 650 mg Q6H PRN [place] PAIN LEVEL 1-3 OR FEVER; Start 06/01/17 at 01:30 Morphine Sulfate (morphine) 2 mg Q4H PRN IV SEVERE PAIN LEVEL 7-10 Last administered on 06/02/17 10:33; Admin Dose 2 MG; Start 06/01/17 at 01:30 Pantoprazole (Protonix Iv) 40 mg DAILY@06 IV Last administered on 06/02/17 05: 42; Admin Dose 40 MG; Start 06/01/17 at 06:00 Hydralazine HCl (Apresoline) 10 mg Q6H PRN IV ELEVATED BLOOD PRESSURE Last administered on 06/02/17 03:13; Admin Dose 10 MG; Start 06/01/17 at 01:30 Miscellaneous Information 1 ea NOTE XX ; Start 06/01/17 at 01:30 Glucose (Glutose) 15 gm Q15M PRN PO DECREASED GLUCOSE; Start 06/01/17 at 01:30 Glucose (Glutose) 22.5 gm Q15M PRN PO DECREASED GLUCOSE; Start 06/01/17 at 01: 30 Dextrose (D50w Syringe) 25 ml Q15M PRN IV DECREASED GLUCOSE; Start 06/01/17 at 01:30 Dextrose (D50w Syringe) 50 ml Q15M PRN IV DECREASED GLUCOSE; Start 06/01/17 at 01:30 Glucagon (Glucagen) 1 mg Q15M PRN IM DECREASED GLUCOSE; Start 06/01/17 at 01:30 Glucose 15 gm 15 gm Q15M PRN BUCCAL DECREASED GLUCOSE; Start 06/01/17 at 01:30 Potassium Chloride/Sodium Chloride (NS-KCl 20 Meq) 1,000 ml @ 50 mls/hr Q20H IV Last administered on 06/02/17 08:34; Admin Dose 110 MLS/HR; Start 06/01/17 at 09:30 Phenol (Chloraseptic Throat [place]) 2 spray Q2H PRN MT SORE THROAT Last administered on 06/02/17 08:43; Admin Dose 2 SPRAY; Start 06/01/17 at 12:00 Diagnostic Test (Pha) (Accu-Chek) 1 ea 02 XX ; Start 06/03/17 at 02:00 IDRIS MURPHY MD Jun 02, 2017 16:10
[2017-06-02] MEDS ORDERED: HYDROCODONE/APAP (5/325) TAB PO PRN (16:30)
[2017-06-02] MEDS ORDERED: ALBUTEROL 18 GM INHALER INH PRN (17:00)
[2017-06-02] MEDS ORDERED: DIAZEPAM 5 MG TAB PO PRN (17:00)
[2017-06-02] MEDS ORDERED: metFORMIN 500 MG TAB PO SCH (18:00)
[2017-06-02 19:51] VITALS: BP 130/78; RESP 20
[2017-06-02] MEDS: FLUTICASONE 0.05% 16 GM NAS SPRAY NASAL SCH (20:49)
[2017-06-02] MEDS: HYDROCORTISONE 2.5% 30 GM RECT CR PR SCH (21:00)
[2017-06-02] MEDS ORDERED: morphine 2 MG INJ IV STA (21:57)
[2017-06-03] MEDS: NS + KCL 20 MEQ 1,000 ML IV SCH ×2 (00:25→07:52)
[2017-06-03] MEDS ORDERED: ACCU-CHEK XX SCH ×2 (02:00)
[2017-06-03] MEDS: morphine 2 MG INJ IV PRN (02:04)
[2017-06-03 02:05] VITALS: BP 140/94; RESP 20
[2017-06-03] MEDS: PANTOPRAZOLE 40 MG INJ IV SCH (06:16)
[2017-06-03 07:18] LABS: ALBUMIN 3.8 g/dl (3.3-4.9); CALCIUM 9.5 mg/dl (8.4-10.2); CREATININE 1.04 mg/dl (0.61-1.24); MAGNESIUM 1.6 mg/dl (1.7-2.5); PHOSPHORUS 2.8 mg/dl (2.5-4.9); POTASSIUM 3.5 mmol/L (3.5-5.1)
[2017-06-03 07:41] VITALS: BP 134/81; RESP 18
[2017-06-03] MEDS: INSULIN ASPART [NOVOLOG] 3 ML PEN SC SCH ×2 (08:12→12:15)
[2017-06-03] MEDS: FLUTICASONE 0.05% 16 GM NAS SPRAY NASAL SCH (08:16)
[2017-06-03] MEDS: HYDROCORTISONE 2.5% 30 GM RECT CR PR SCH (08:16)
[2017-06-03] MEDS ORDERED: AMLODIPINE 10 MG TAB PO SCH (09:00)
[2017-06-03] MEDS ORDERED: HYDROCHLOROTHIAZIDE 25 MG TAB PO SCH (09:00)
[2017-06-03] MEDS ORDERED: LORATADINE 10 MG TAB PO SCH (09:00)
--- NOTE | 2017-06-03 09:20 | PN ---
Date/Time of Note Date/Time of Note DATE: 06/03/17 TIME: 09:19 Assessment/Plan Lines/Catheters IV Catheter Type (from Nrs): Peripheral IV Mitchell in Place (from Nrs): No Assessment/Plan Assessment/Plan 57-year-old male with small bowel obstruction * Resolved * Small bowel follow-through shows contrast into the colon at 90 minutes * Surgically stable for discharge home when medically cleared Subjective 24 Hr Interval Summary Denies abdominal pain. Tolerating regular diet. Passing BMs. Afebrile. Exam/Review of Systems Vital Signs Vitals Vital Signs Date Time Temp Pulse Resp B/P Pulse Ox O2 Delivery O2 Flow Rate FiO2 06/03/17 07:41 98.9 83 18 134/81 95 06/01/17 16:50 Nasal Cannula 2.0 Intake and Output 06/02/17 06/02/17 06/03/17 15:00 23:00 07:00 Intake Total 250 ml 3680 ml 1490 ml Output Total 700 ml 800 ml Balance 250 ml 2980 ml 690 ml Exam Free Text/Dictation GENERAL: Awake, alert, oriented x 3. No acute distress. HEENT: Nasogastric tube is in place CARDIOVASCULAR: S1S2, regular rate and rhythm. No murmurs appreciated. RESPIRATORY: Clear to auscultation bilaterally. ABDOMEN: Soft, bowel sounds present, nondistended, nontender to palpation. There is a healed midline incision from prior surgery. There are no palpable hernias. EXTREMITIES: Free range of motion x 4. No cyanosis, edema, or clubbing. Results Result Diagram: 06/02/17 0505 06/03/17 0535 TONE CONDON MD Jun 03, 2017 09:20
--- NOTE | 2017-06-03 12:50 | PDOCDIS ---
Discharge Instructions CONDITION Patient Condition: Good HOME CARE INSTRUCTIONS: Special Diet: soft diet FOLLOW UP/APPOINTMENTS Follow-up Plan Please follow up with your primary care provider as soon as possible. Please follow up with Dr. Camargo if symptoms persist. MARY CALDERON Jun 03, 2017 12:50
--- NOTE | 2017-06-03 14:02 | DS ---
Date/Time of Note Date/Time of Note DATE: 06/03/17 TIME: 14:02 Discharge Summary Admission/Discharge Info Admit Date/Time May 31, 2017 at 23:51 Discharge Date/Time Patient Condition: Fair Hx of Present Illness Chief complaint: Abdominal pain This is a 57-year-old male with a past medical history of hypertension, persistent tobacco and alcohol abuse, and colon cancer status post resection who presents to the ER with mid abdominal pain that started this morning. Patient states that abdominal pain is intermittent but severe, so sedated with nausea and nonbilious/nonbloody vomiting. He also endorses loose stools recently, and had a watery episode this evening. He denies any fevers or chills. He denies headache or vision changes. He denies chest pain or trouble breathing. He denies back pain. He denies any testicular pain. He denies any urinary frequency or dysuria. He denies any flank pain. Allergies: Shellfish Medications: See [facility] Hospital Course Discharge diagnoses Small bowel obstruction Hypertension Diabetes mellitus BPH Gout Dyslipidemia Patient is a 57-year-old -[place] male with a past medical history significant for hypertension and previous colon cancer status post surgery who presented to [facility] for abdominal pain and found to have small bowel obstruction. Patient was treated conservatively with NG tube, fluids, and bowel rest and general surgery was consulted. Over the course of a few days patient's abdominal pain distention dissipated NG tube was removed and patient was restarted on his diet. Patient tolerated diet well and is able to go home. General surgery clear patient to discharge. Extensive information was given to the patient regarding foods to avoid given his risk of small bowel obstruction. Patient is to continue all home medications once at home. Home Meds Active Scripts Fluticasone Propionate (Flonase Allergy Relief) 9.9 Ml [place].susp, 1 SPRAY NASAL BID, #1 BOTTLE TO EACH NOSTRIL Prov:DHAVAL COLVIN NP 10/30/16 Albuterol Sulfate* (Proair HFA*) 8.5 Gm Hfa.aer.ad, 2 PUFF INH Q4H Y for WHEEZING AND SOB, #1 INHALER Prov:DHAVAL COLVIN NP 10/30/16 Cetirizine Hcl* (Zyrtec*) 10 Mg Capsule, 10 MG PO DAILY, #30 TAB.CHEW Prov:DHAVAL COLVIN NP 10/30/16 Diazepam* (Valium*) 5 Mg Tablet, 5 MG PO Q8 Y for ANXIETY, #10 TAB Prov:RADHA MOORE 04/17/16 Reported Medications Metformin* (Glucophage*) 500 Mg Tab, 500 MG PO daily 03/06/13 Amlodipine Besylate* (Amlodipine Besylate*) 10 Mg Tablet, 10 MG PO DAILY 10/08/12 Hydrochlorothiazide (Hydrochlorothiazide) 25 Mg Tablet, 25 MG PO DAILY 02/12/12 Discontinued Scripts Diphenhydramine Hcl* (Benadryl*) 25 Mg Cap, 25 MG PO Q6, #30 CAP Prov:DAMION CARRANZA PA-C 03/25/17 Hydrocortisone Acetate* (Anusol-HC*) 30 Gm Cream.gm., 1 APPLIC [place] BID, #1 TUB Prov:DAMION CARRANZA PA-C 03/25/17 Lidocaine (Lidocaine Topical) 30 Ml Jel, 30 ML RECTAL BID, #1 TUB Prov:DAMION CARRANZA PA-C 03/25/17 Dextromethorphan Hb-Promethazine Hcl (Promethazine DM Syrup) 473 Ml Syrup, 5 ML PO Q6 Y for COUGH for 5 Days, ML Prov:GERMAN LAMBERT PA-C 11/30/16 Azithromycin* (Zithromax*) 250 Mg Tablet, 250 MG PO .[place] DIRECTED, #6 TAB TAKE 500 MG (2 TABS) THE FIRST DAY THEN 250 MG (1 TAB) DAYS 2-5 Prov:DHAVAL COLVIN NP 10/30/16 Guaifenesin-Codeine Phosphate* (Guaifenesin* AC Cough Syrup) 473 Ml Liquid, 10 ML PO Q4H Y for COUGH, #120 ML Prov:DHAVAL COLVIN NP 10/30/16 Naproxen* (Naprosyn*) 500 Mg Tablet, 500 MG PO BID Y for PAIN AND/OR INFLAMMATION, #20 TAB Prov:RADHA MOORE 04/17/16 Hydrocodone Bit-Acetaminophen* ([place]*) 5-325 Mg Tab, 1 TAB PO Q6 Y for PAIN, # 20 TAB Prov:RADHA MOORE 04/17/16 Ibuprofen* (Motrin*) 600 Mg Tab, 600 MG PO BID, #30 TAB 0 Refills Prov:GALI LARKIN PA-C 10/16/15 Follow-up Plan Please follow up with your primary care provider as soon as possible. Please follow up with Dr. Camargo if symptoms persist. Primary Care Provider Prem De Souza Time spent on discharge: > 30 minutes Pending Labs Laboratory Tests Test 06/02/17 15:10 06/02/17 17:21 06/02/17 20:48 06/03/17 05:35 Bedside Glucose 235mg/dL (70-220) 211mg/dL (70-220) 115mg/dL (70-220) Sodium Level 138mmol/L (135-144) Potassium Level 3.5mmol/L (3.5-5.1) Chloride Level 99mmol/L (97-110) Carbon Dioxide Level 32mmol/L (21-31) Anion Gap 11 (8-16) Blood Urea Nitrogen 14mg/dl (7-20) Creatinine 1.04mg/dl (0.61-1.24) Glucose Level 116mg/dl (70-220) Calcium Level 9.5mg/dl (8.4-10.2) Phosphorus Level 2.8mg/dl (2.5-4.9) Magnesium Level 1.6mg/dl (1.7-2.5) Albumin 3.8g/dl (3.3-4.9) Test 06/03/17 07:42 06/03/17 11:53 Bedside Glucose 113mg/dL (70-220) 134mg/dL (70-220) MARY CALDERON Jun 03, 2017 14:02
== END 2017-06-03 15:15 | disposition home or self-care (01) | DRG 390 ==
LOC: FTE 17:51 → MS2 23:51
PROVIDERS: ADMIT Family Medicine; ATTEND Family Medicine
DX: K56.60 Unspecified intestinal obstruction (principal); I10 Essential (primary) hypertension; E11.9 Type 2 diabetes mellitus without complications; Z79.4 Long term (current) use of insulin; N40.0 Benign prostatic hyperplasia without lower urinary tract symptoms; M10.9 Gout, unspecified; E78.5 Hyperlipidemia, unspecified; F10.10 Alcohol abuse, uncomplicated; Z85.038 Personal history of other malignant neoplasm of large intestine; F17.210 Nicotine dependence, cigarettes, uncomplicated; Z90.49 Acquired absence of other specified parts of digestive tract
CPT/HCPCS: 36415; 71010; 74176; 74250; 80048; 80053; 80061; 80069; 81001; 82962; 83036; 83690; 83735; 84100; 84443; 85025; 96374; 96375; C9113; J0360; J1815; J2270; J2405; J3480; J7030

== ENCOUNTER 2018-01-29 15:57 | Emergency (ER) | END 2018-01-29 21:17 | disposition home or self-care (01) ==

== ENCOUNTER 2019-01-06 20:22 | Emergency (ER) | payer OTHER ==
[~2019-01-06] VITALS: Ht 167.6 cm; Wt 75.0 kg
[~2019-01-06 20:22] MED LIST changes: +ACET500C5 PO; -ALBU8.5H3 INH; +ALBU8.5H8 INH; -AZIT250T94 PO; -BEN25 PO; -D-ME473S18 PO; -DIAZ-90 PO; +DIAZ5TAB PO; -GUAI473L22 PO; -HYDR-3498 PO; -HYDR30CR75 PR; -IBUP-1542 PO; -LIDO30JE13 RECTAL; +METF-849 PO; -METF500T4 PO; -NAPR-260 PO; +TRAM50TA2 PO
[2019-01-06 20:24] VITALS: Ht 167.6 cm; Wt 75.0 kg
--- NOTE | 2019-01-07 01:26 | ERD ---
ER Documentation Chief Complaint Chief Complaint AP, BLOATING X'S 2 WEEKS HPI 58-year-old who presents with abdominal pain and bloating. He describes at least 2 weeks of abdominal bloating, passing a significant amount of gas. Vani ent has a remote history of partial colon resection secondary to colon cancer. Strong family history. His last colonoscopy was 6 months ago with biopsies that were reported to be negative. He is concerned that he may have a bowel obstruction or recurrence of cancer. He is requesting imaging. He denies any bloody stools. No chest pain shortness of breath nausea or vomiting. ROS All systems reviewed and are negative except as per history of present illness. Medications Home Meds Active Scripts Acetaminophen* (Tylophen*) 500 Mg Capsule, 1 CAP PO Q6H PRN for PAIN AND OR ELEVATED TEMP, #20 CAP Prov:WOODY,LISBETH 01/29/18 Reported Medications Timolol Maleate* (Timoptic*) 0.5%-5ml Opht, 1 DROP BOTH EYES BID, #1 EA 01/07/19 Latanoprost (Latanoprost) 2.5 Ml Drops, 1 DROP BOTH EYES QHS, #1 BOTTLE 01/07/19 Sitagliptin* (Januvia*) 100 Mg Tablet, 100 MG PO DAILY for 90 Days, #90 01/07/19 Tamsulosin Hcl* (Flomax*) 0.4 Mg Cap.er.24h, 0.4 MG PO DAILY, CAP 01/07/19 [Tamsulosin] No Conflict Check 01/07/19 Metformin* (Glucophage*) 500 Mg Tab, 500 MG PO daily 03/06/13 Amlodipine Besylate* (Amlodipine Besylate*) 10 Mg Tablet, 10 MG PO DAILY 10/08/12 Hydrochlorothiazide (Hydrochlorothiazide) 25 Mg Tablet, 25 MG PO DAILY 02/12/12 Discontinued Scripts Tramadol HCl (Tramadol HCl) 50 Mg Tablet, 50 MG PO Q6 PRN for PAIN, #20 TAB Prov:WOODY,LISBETH 01/29/18 Fluticasone Propionate (Flonase Allergy Relief) 9.9 Ml [place].susp, 1 SPRAY NASAL BID, #1 BOTTLE TO EACH NOSTRIL Prov:DHAVAL COLVIN NP 10/30/16 Albuterol Sulfate* (Proair HFA*) 8.5 Gm Hfa.aer.ad, 2 PUFF INH Q4H PRN for WHEEZING AND SOB, #1 INHALER Prov:BILLYIBISDONTETANIAAubrey Kaye GAS ENGINE REPAIRER 10/30/16 Cetirizine Hcl* (Zyrtec*) 10 Mg Capsule, 10 MG PO DAILY, #30 TAB.CHEW Prov:GRACYDONTETANIAAubrey Kaye NP 10/30/16 Diazepam* (Valium*) 5 Mg Tablet, 5 MG PO Q8 PRN for ANXIETY, #10 TAB Prov:RADHA MOORE MD 04/17/16 Allergies Allergies: Coded Allergies: Shellfish (Unverified Allergy, Unknown, 01/07/19) PMhx/Soc History of Surgery: Yes (R Hip Repair,Colorectomy from colon ca) Anesthesia Reaction: No Hx Neurological Disorder: No Hx Respiratory Disorders: No Hx Cardiac Disorders: Yes (HTN, HIGH CHOL) Hx Psychiatric Problems: No Hx Miscellaneous Medical Probl: Yes (Colon CA,L Index Finger Fx,L Shoulder Sprain,Tinea Cruris,Dyslipidemia,DM) Hx Alcohol Use: Yes (Social) Hx Substance Use: Yes (MARIJUANA WHILE YOUNG) Hx Tobacco Use: Yes Smoking Status: Never smoker FmHx Family History: No diabetes Physical Exam Vitals Vital Signs Date Temp Pulse Resp B/P (MAP) Pulse Ox O2 O2 Flow FiO2 Time Delivery Rate 01/07/19 97.0 77 14 156/105 98 03:08 (122) 01/07/19 97.0 71 15 156/110 95 02:06 (125) 01/07/19 97.0 76 20 159/110 96 00:37 (126) 01/06/19 97.0 91 20 171/113 96 20:24 (132) Physical Exam General: Well developed, well nourished, no acute distress Head: Normocephalic, atraumatic. Eyes: Pupils equally reactive, EOM intact ENT: Moist mucous membranes Neck: Supple, no lymphadenopathy Respiratory: Lungs clear bilaterally, no distress Cardiovascular: RRR, no murmurs, rubs, or gallops Abdominal: Soft, slightly protuberant but nontender no rebound or guarding, midline surgical scar. : Deferred MSK: No edema, no unilateral swelling, 5/5 strength Neurologic: Alert and oriented, moving all extremities, normal speech, no focal weakness, no cerebellar signs Skin: No rash Psych: Normal mood Result Diagram: 01/07/19 0034 01/07/19 0034 Results 24 hrs Laboratory Tests Test 01/07/19 00:34 White Blood Count 5.9 10^3/ul Red Blood Count 5.51 10^6/ul Hemoglobin 16.3 g/dl Hematocrit 45.5 % Mean Corpuscular Volume 82.6 fl Mean Corpuscular Hemoglobin 29.6 pg Mean Corpuscular Hemoglobin Concent 35.8 g/dl Red Cell Distribution Width 11.9 % Platelet Count 247 10^3/UL Mean Platelet Volume 10.1 fl Immature Granulocytes % 0.200 % Neutrophils % 48.9 % Lymphocytes % 33.3 % Monocytes % 11.6 % Eosinophils % 5.2 % Basophils % 0.8 % Nucleated Red Blood Cells % 0.0 /100WBC Immature Granulocytes # 0.010 10^3/ul Neutrophils # 2.9 10^3/ul Lymphocytes # 2.0 10^3/ul Monocytes # 0.7 10^3/ul Eosinophils # 0.3 10^3/ul Basophils # 0.1 10^3/ul Nucleated Red Blood Cells # 0.0 10^3/ul Sodium Level 141 mmol/L Potassium Level 3.7 mmol/L Chloride Level 105 mmol/L Carbon Dioxide Level 28 mmol/L Anion Gap 8 Blood Urea Nitrogen 15 mg/dl Creatinine 0.94 mg/dl Est Glomerular Filtrat Rate mL/min > 60 mL/min Glucose Level 213 mg/dl Calcium Level 9.7 mg/dl Total Bilirubin 0.8 mg/dl Direct Bilirubin 0.00 mg/dl Indirect Bilirubin 0.8 mg/dl Aspartate Amino Transf (AST/SGOT) 26 IU/L Alanine Aminotransferase (ALT/SGPT) 18 IU/L Alkaline Phosphatase 93 IU/L Total Protein 7.5 g/dl Albumin 4.3 g/dl Globulin 3.20 g/dl Albumin/Globulin Ratio 1.34 Lipase 86 U/L Procedures/MDM EKG, MONITORS, & DIAGNOSTIC IMAGING: CT abdomen pelvis: IMPRESSION: 1. Prior bowel surgery with partial resection of the ascending colon with mild fluid identified within the small bowel but without evidence for gross bowel obstruction. This may represent a mild enteritis however a partial small-bowel obstruction cannot be totally excluded. Clinical correlation is necessary. 2. Retained stool within the transverse and descending colon. 3. Mild sigmoid diverticulosis. 4. Right mid renal cyst. 5. Calcified mediastinal node and right lower lobe granuloma consistent with prior granulomatous disease. 6. Mildly enlarged prostate. 7. Vascular calcifications. 8. Degenerative changes within the spine. 9. Prominent heterotopic bone formation right acetabulum and proximal femur. LAB INTERPRETATION: I reviewed the laboratory testing and it shows no evidence of acute process MEDICAL DECISION MAKING: Patient likely has nonemergent or nonserious cause of abdominal bloating. No signs of ascites. However given his history is at risk for bowel obstruction. Lower concern for recurrence of malignancy given recent negative colonoscopy. Patient's abdominal exam is mostly benign. ER COURSE: * CT imaging is nonspecific. Given that the patient is having bowel movements and passing gas obstruction is unlikely. I believe outpatient follow-up is appropriate. Reassurance provided. The patient can be safely discharged. CONSULTATION: None DISPOSITION PLAN: The patient does not have an identifiable emergent medical condition that warrants inpatient hospitalization at this time. The patient is deemed safe for discharge with outpatient follow-up. We discussed follow up with the patient's primary care doctor within 24 to 48 hours as needed. We also discussed return to the emergency room for worsening symptoms or worsening condition. Outpatient referral: None required Discharge Medications: Bentyl Departure Diagnosis: Primary Impression: Abdominal pain Abdominal location: generalized Qualified Codes: R10.84 - Generalized abdominal pain Condition: Stable FINN ADAM MD January 07, 2019 01:26
[2019-01-07] MEDS ORDERED: TIMO5DRO30 BOTH EYES (02:57)
[2019-01-07] MEDS ORDERED: LATA2.5D2 BOTH EYES (02:57)
[2019-01-07] MEDS ORDERED: TAMSULOSIN (02:57)
[2019-01-07] MEDS ORDERED: TAMS-14 PO (02:57)
[2019-01-07] MEDS ORDERED: SITA100T11 PO (02:57)
[2019-01-07] MEDS ORDERED: DICY10CA40 PO (04:07)
[2019-01-07 04:34] VITALS: BP 165/113; PULSE 82; RESP 16
== END 2019-01-07 04:43 | disposition home or self-care (01) ==
LOC: E/R 20:22
DX: R10.84 Generalized abdominal pain (principal); I10 Essential (primary) hypertension; E11.9 Type 2 diabetes mellitus without complications; Z79.84 Long term (current) use of oral hypoglycemic drugs; Z85.038 Personal history of other malignant neoplasm of large intestine; Z87.891 Personal history of nicotine dependence
CPT/HCPCS: 36415; 74176; 80053; 83690; 85025; Z7502

== ENCOUNTER 2019-02-28 19:49 | Emergency (ER) | payer OTHER ==
[~2019-02-28] VITALS: Ht 167.6 cm; Wt 74.9 kg
[~2019-02-28 19:49] MED LIST changes: -ALBU8.5H8 INH; -CETI10CA PO; -DIAZ5TAB PO; +DICY10CA40 PO; -FLUT9.9S NASAL; +LATA2.5D2 BOTH EYES; +SITA100T11 PO; +TAMS-14 PO; +TAMSULOSIN; +TIMO5DRO30 BOTH EYES; -TRAM50TA2 PO
[2019-02-28 19:53] VITALS: Ht 167.6 cm; Wt 74.9 kg
[2019-02-28] MEDS ORDERED: ACET-141 PO (23:01)
--- NOTE | 2019-02-28 23:03 | ERD ---
ER Documentation Chief Complaint Chief Complaint LLE swelling x 1 week ROS All systems reviewed and are negative except as per history of present illness. Medications Home Meds Active Scripts Acetaminophen* (Acetaminophen*) 500 MG Extra Strength Tablet, 500 MG PO Q4H PRN for PAIN AND OR ELEVATED TEMP, #30 TAB Prov:TONE HELLER DO 02/28/19 Dicyclomine HCl (Dicyclomine HCl) 10 Mg Capsule, 10 MG PO TID PRN for ABDOMINAL CRAMPING, #20 CAP Prov:FINN ADAM MD 01/07/19 Acetaminophen* (Tylophen*) 500 Mg Capsule, 1 CAP PO Q6H PRN for PAIN AND OR ELEVATED TEMP, #20 CAP Prov:WOODY,MELODY 01/29/18 Reported Medications Timolol Maleate* (Timoptic*) 0.5%-5ml Opht, 1 DROP BOTH EYES BID, #1 EA 01/07/19 Latanoprost (Latanoprost) 2.5 Ml Drops, 1 DROP BOTH EYES QHS, #1 BOTTLE 01/07/19 Sitagliptin* (Januvia*) 100 Mg Tablet, 100 MG PO DAILY for 90 Days, #90 01/07/19 Tamsulosin Hcl* (Flomax*) 0.4 Mg Cap.er.24h, 0.4 MG PO DAILY, CAP 01/07/19 [Tamsulosin] No Conflict Check 01/07/19 Metformin* (Glucophage*) 500 Mg Tab, 500 MG PO daily 03/06/13 Amlodipine Besylate* (Amlodipine Besylate*) 10 Mg Tablet, 10 MG PO DAILY 10/08/12 Hydrochlorothiazide (Hydrochlorothiazide) 25 Mg Tablet, 25 MG PO DAILY 02/12/12 Allergies Allergies: Coded Allergies: Shellfish (Unverified Allergy, Unknown, 01/07/19) PMhx/Soc History of Surgery: Yes (R Hip Repair,Colorectomy from colon ca) Anesthesia Reaction: No Hx Neurological Disorder: No Hx Respiratory Disorders: No Hx Cardiac Disorders: Yes (HTN, HIGH CHOL) Hx Psychiatric Problems: No Hx Miscellaneous Medical Probl: Yes (Colon CA,L Index Finger Fx,L Shoulder Sprain,Tinea Cruris,Dyslipidemia,DM) Hx Alcohol Use: Yes (Social) Hx Substance Use: Yes (MARIJUANA WHILE YOUNG) Hx Tobacco Use: Yes Smoking Status: Current every day smoker Physical Exam Vitals Vital Signs Date Temp Pulse Resp B/P (MAP) Pulse Ox O2 O2 Flow FiO2 Time Delivery Rate 02/28/19 97.8 83 16 125/88 100 19:53 (100) Physical Exam Const: No acute distress Head: Atraumatic Eyes: Normal Conjunctiva ENT: Normal External Ears, Nose and Mouth. Neck: Full range of motion. No meningismus. Resp: Clear to auscultation bilaterally Cardio: Regular rate and rhythm, no murmurs Abd: Soft, non tender, non distended. Normal bowel sounds Skin: No petechiae or rashes Back: No midline or flank tenderness Ext: No cyanosis, or edema Neur: Awake and alert Psych: Normal Mood and Affect Departure Diagnosis: Primary Impression: Leg swelling Condition: Fair Patient Instructions: Reducing Knee Pain and Swelling Referrals: [facility] YOU HAVE RECEIVED A MEDICAL SCREENING EXAM AND THE RESULTS INDICATE THAT YOU DO NOT HAVE A CONDITION THAT REQUIRES URGENT TREATMENT IN THE EMERGENCY DEPARTMENT. FURTHER EVALUATION AND TREATMENT OF YOUR CONDITION CAN WAIT UNTIL YOU ARE SEEN IN YOUR DOCTORS OFFICE WITHIN THE NEXT 1-2 DAYS. IT IS YOUR RESPONSIBILITY TO MAKE AN APPOINTMENT FOR FOLOW-UP CARE. IF YOU HAVE A PRIMARY DOCTOR --you should call your primary doctor and schedule an appointment IF YOU DO NOT HAVE A PRIMARY DOCTOR YOU CAN CALL OUR PHYSICIAN REFERRAL HOTLINE AT IF YOU CAN NOT AFFORD TO SEE A PHYSICIAN YOU CAN CHOSE FROM THE FOLLOWING [facility] [address] [facility]. [facility] [address] [facility] [address] [facility] [facility] [address] [facility] [facility]. [facility] [address] [facility]. [facility]. [address] Additional Instructions: Call your primary care doctor TOMORROW for an appointment during the next 1-2 days.See the doctor sooner or return here if your condition worsens before your appointment time. Recommend leg elevation compression stocking if leg elevation does not help tylenol as needed and as directed for pain keep appointment with PCP TONE HELLER DO Feb 28, 2019 23:03
[2019-03-01 00:19] VITALS: BP 145/84; PULSE 76; RESP 17
== END 2019-03-01 00:19 | disposition home or self-care (01) ==
LOC: FTE 19:49
DX: M79.89 Other specified soft tissue disorders (principal); I10 Essential (primary) hypertension; E11.9 Type 2 diabetes mellitus without complications; F17.210 Nicotine dependence, cigarettes, uncomplicated; Z79.84 Long term (current) use of oral hypoglycemic drugs; Z85.038 Personal history of other malignant neoplasm of large intestine
CPT/HCPCS: 93971; Z7502

== ENCOUNTER 2019-03-18 20:03 | Emergency (ER) | payer OTHER ==
[~2019-03-18] VITALS: Ht 167.6 cm; Wt 73.6 kg
[~2019-03-18 20:03] MED LIST changes: +ACET-141 PO
[2019-03-18 20:23] VITALS: BP 129/82; PULSE 83; RESP 18; Ht 167.6 cm; Wt 73.6 kg
[2019-03-18] MEDS ORDERED: METR500T PO (22:18)
--- NOTE | 2019-03-18 22:22 | ERD ---
ER Documentation Chief Complaint Chief Complaint unprotected exposure a month ago; STD check x Trich; L knee issue,too HPI 59-year-old male with past medical history of hypertension, diabetes type 2 presents for STD testing. States he had unprotected excess over a month ago with a female partner who recently tested positive for trichomoniasis. He is concerned despite reporting no symptoms. He denies penile discharge, urinary symptoms as burning or itching, ulcerations, fevers, chills or any other concerning symptoms. Reports good health and is otherwise without complaint. He is also requesting HIV testing at this time. ROS All systems reviewed and are negative except as per history of present illness. Medications Home Meds Active Scripts Metronidazole* (Flagyl*) 500 Mg Tablet, 500 MG PO BID for 5 Days, TAB Prov:MARTIN BRUNO PA-C 03/18/19 Acetaminophen* (Acetaminophen*) 500 MG Extra Strength Tablet, 500 MG PO Q4H PRN for PAIN AND OR ELEVATED TEMP, #30 TAB Prov:TONE HELLER DO 02/28/19 Dicyclomine HCl (Dicyclomine HCl) 10 Mg Capsule, 10 MG PO TID PRN for ABDOMINAL CRAMPING, #20 CAP Prov:FINN ADAM MD 01/07/19 Acetaminophen* (Tylophen*) 500 Mg Capsule, 1 CAP PO Q6H PRN for PAIN AND OR ELEV ATED TEMP, #20 CAP Prov:LISBETH MCKAY 01/29/18 Reported Medications Timolol Maleate* (Timoptic*) 0.5%-5ml Opht, 1 DROP BOTH EYES BID, #1 EA 01/07/19 Latanoprost (Latanoprost) 2.5 Ml Drops, 1 DROP BOTH EYES QHS, #1 BOTTLE 01/07/19 Sitagliptin* (Januvia*) 100 Mg Tablet, 100 MG PO DAILY for 90 Days, #90 01/07/19 Tamsulosin Hcl* (Flomax*) 0.4 Mg Cap.er.24h, 0.4 MG PO DAILY, CAP 01/07/19 [Tamsulosin] No Conflict Check 01/07/19 Metformin* (Glucophage*) 500 Mg Tab, 500 MG PO daily 03/06/13 Amlodipine Besylate* (Amlodipine Besylate*) 10 Mg Tablet, 10 MG PO DAILY 10/08/12 Hydrochlorothiazide (Hydrochlorothiazide) 25 Mg Tablet, 25 MG PO DAILY 02/12/12 Allergies Allergies: Coded Allergies: Shellfish (Unverified Allergy, Unknown, 01/07/19) PMhx/Soc History of Surgery: No Anesthesia Reaction: No Hx Neurological Disorder: No Hx Respiratory Disorders: No Hx Cardiac Disorders: No Hx Psychiatric Problems: No Hx Miscellaneous Medical Probl: Yes (high cholesterol,HTN gout,gastritis,high cassie,glaucoma) Hx Alcohol Use: Yes Hx Substance Use: No (former drug user.) Hx Tobacco Use: Yes Smoking Status: Current every day smoker FmHx Family History: diabetes Physical Exam Vitals Vital Signs Date Temp Pulse Resp B/P (MAP) Pulse Ox O2 O2 Flow FiO2 Time Delivery Rate 03/18/19 97.6 83 18 129/82 96 20:23 (98) Physical Exam Const: No acute distress Head: Atraumatic Eyes: Normal Conjunctiva ENT: Normal External Ears, Nose and Mouth. Neck: Full range of motion. No meningismus. Resp: Clear to auscultation bilaterally Cardio: Regular rate and rhythm, no murmurs Abd: Soft, non tender, non distended. Normal bowel sounds Skin: No petechiae or rashes Back: No midline or flank tenderness Ext: No cyanosis, or edema Neur: Awake and alert Psych: Normal Mood and Affect Procedures/MDM 59-year-old male who presents requesting STD testing. With her partner recently tested positive for trichomoniasis. He has agreed to be prophylactically treated for trichomoniasis with 7-day course of Flagyl. GC and Chlamydia testing as well as HIV testing done per patient request. Patient to follow-up results as instructed. DISPOSITION PLAN: We discussed follow up with the patient's primary care doctor within 24 to 48 hours. Patient counseled regarding my diagnostic impression and care plan. Prior to discharge all questions answered. Pt agrees with treatment plan and understands strict return precautions. Precautionary instructions provided including instructions to return to the ER if not improving or for any worsening or changing symptoms or concerns. Disclaimer: Inadvertent spelling and grammatical errors are likely due to EHR/dictation software use and do not reflect on the overall quality of patient care. Also, please note that the electronic time recorded on this note does not necessarily reflect the actual time of the patient encounter. Departure Diagnosis: Primary Impression: Encounter for laboratory test Condition: Stable Patient Instructions: Teens: STD Symptoms in Men Referrals: COMMUNITY CLINICS YOU HAVE RECEIVED A MEDICAL SCREENING EXAM AND THE RESULTS INDICATE THAT YOU DO NOT HAVE A CONDITION THAT REQUIRES URGENT TREATMENT IN THE EMERGENCY DEPARTMENT. FURTHER EVALUATION AND TREATMENT OF YOUR CONDITION CAN WAIT UNTIL YOU ARE SEEN IN YOUR DOCTORS OFFICE WITHIN THE NEXT 1-2 DAYS. IT IS YOUR RESPONSIBILITY TO MAKE AN APPOINTMENT FOR FOLOW-UP CARE. IF YOU HAVE A PRIMARY DOCTOR --you should call your primary doctor and schedule an appointment IF YOU DO NOT HAVE A PRIMARY DOCTOR YOU CAN CALL OUR PHYSICIAN REFERRAL HOTLINE AT IF YOU CAN NOT AFFORD TO SEE A PHYSICIAN YOU CAN CHOSE FROM THE FOLLOWING [facility] [address] [facility]. [facility] [address] [facility]. [facility] [address] [facility] [facility] [address] [facility]. [facility] [address] [facility] [facility] [address] Additional Instructions: Call your primary care doctor TOMORROW for an appointment during the next 2-3 days.See the doctor sooner or return here if your condition worsens before your appointment time. Call emergency room for results of your testing. MARTIN BRUNO PA-C Mar 18, 2019 22:22
== END 2019-03-18 22:35 | disposition home or self-care (01) ==
LOC: FTE 20:03
DX: Z11.3 Encounter for screening for infections with a predominantly sexual mode of transmission (principal); I10 Essential (primary) hypertension; E11.9 Type 2 diabetes mellitus without complications; F17.210 Nicotine dependence, cigarettes, uncomplicated; Z79.84 Long term (current) use of oral hypoglycemic drugs
CPT/HCPCS: 87536; 87591; Z7502; 99283

== ENCOUNTER 2019-04-12 17:04 | Emergency (ER) | payer OTHER ==
[~2019-04-12] VITALS: Ht 170.2 cm; Wt 73.8 kg
[~2019-04-12 17:04] MED LIST changes: +CEPH-443 PO; +METR500T PO; +SULF1TAB31 PO
[2019-04-12 17:07] VITALS: BP 140/84; PULSE 86; RESP 20; Ht 170.2 cm; Wt 73.8 kg
--- NOTE | 2019-04-12 17:33 | ERD ---
ER Documentation Chief Complaint Chief Complaint Pt reports bleeding from L nare off and on x 3 days HPI 59-year-old male, with history of hypertension, presents to the emergency department, complaining of 3 days with intermittent episodes of left nostril epistaxis. The patient denies headache, no fever, no history of nasal trauma. Additionally, the patient is also complaining of left lower extremity edema, tenderness and erythema over the last 3 weeks. The patient denies fever or chills. No open wounds. ROS All systems reviewed and are negative except as per history of present illness. Medications Home Meds Active Scripts Sulfamethoxazole/Trimethoprim* (Bactrim Ds* Tablet) 1 Each Tablet, 1 TAB PO BID, #14 TAB Prov:LEDY SAEED MD 04/12/19 Cephalexin* (Keflex*) 500 Mg Capsule, 500 MG PO BID for 7 Days, CAP Prov:LEDY SAEED MD 04/12/19 Metronidazole* (Flagyl*) 500 Mg Tablet, 500 MG PO BID for 5 Days, TAB Prov:MARTIN BRUNO PA-C 03/18/19 Acetaminophen* (Acetaminophen*) 500 MG Extra Strength Tablet, 500 MG PO Q4H PRN for PAIN AND OR ELEVATED TEMP, #30 TAB Prov:TONE HELLER DO 02/28/19 Dicyclomine HCl (Dicyclomine HCl) 10 Mg Capsule, 10 MG PO TID PRN for ABDOMINAL CRAMPING, #20 CAP Prov:FINN ADAM MD 01/07/19 Acetaminophen* (Tylophen*) 500 Mg Capsule, 1 CAP PO Q6H PRN for PAIN AND OR ELEVATED TEMP, #20 CAP Prov:LISBETH MCKAY 01/29/18 Reported Medications Timolol Maleate* (Timoptic*) 0.5%-5ml Opht, 1 DROP BOTH EYES BID, #1 EA 01/07/19 Latanoprost (Latanoprost) 2.5 Ml Drops, 1 DROP BOTH EYES QHS, #1 BOTTLE 01/07/19 Sitagliptin* (Januvia*) 100 Mg Tablet, 100 MG PO DAILY for 90 Days, #90 01/07/19 Tamsulosin Hcl* (Flomax*) 0.4 Mg Cap.er.24h, 0.4 MG PO DAILY, CAP 01/07/19 [Tamsulosin] No Conflict Check 01/07/19 Metformin* (Glucophage*) 500 Mg Tab, 500 MG PO daily 03/06/13 Amlodipine Besylate* (Amlodipine Besylate*) 10 Mg Tablet, 10 MG PO DAILY 10/08/12 Hydrochlorothiazide (Hydrochlorothiazide) 25 Mg Tablet, 25 MG PO DAILY 02/12/12 Allergies Allergies: Coded Allergies: Shellfish (Unverified Allergy, Unknown, 01/07/19) PMhx/Soc History of Surgery: No Anesthesia Reaction: No Hx Neurological Disorder: No Hx Respiratory Disorders: No Hx Cardiac Disorders: No Hx Psychiatric Problems: No Hx Miscellaneous Medical Probl: Yes (high cholesterol,HTN gout,gastritis,high cassie,glaucoma) Hx Alcohol Use: Yes Hx Substance Use: No (former drug user.) Hx Tobacco Use: Yes Smoking Status: Never smoker FmHx Family History: No diabetes, No coronary disease Physical Exam Vitals Vital Signs Date Temp Pulse Resp B/P (MAP) Pulse Ox O2 O2 Flow FiO2 Time Delivery Rate 04/12/19 98.3 86 20 140/84 95 17:07 (102) Physical Exam Patient alert, oriented, vital signs stable. HEAD: Normocephalic, atraumatic. EYES: PERRLA, EOMI, Sclera and conjunctiva appear normal. NOSE: Left nostril with minimal septal bleeding. EARS: Canals clear, tympanic membranes WNL. MOUTH: normal lips and tongue, no oral lesions. THROAT: Normal oropharynx, no tonsillar exudates. NECK: Supple, No lymphadenopathy. Full ROM without pain or tenderness. HEART: RRR, no rubs, murmurs, clicks or gallops. LUNGS: Clear to auscultation. ABDOMEN: Soft, non-tender without masses or hepatosplenomegaly. EXTREMITIES: Left lower extremity with area of erythema, warmth and edema below the knee and above the ankle. BACK: Full ROM, no deformity, normal back exam NEURO: Cranial nerves grossly intact, no motor or sensory deficit SKIN: No rashes, no petechia. Results 24 hrs Current Medications Medications Dose Sig/Filippo Start Time Status Last (Trade) Ordered Route PRN Stop Time Admin Dose Reason Admin Silver 3 stick ONCE ONCE 04/12/19 DC Nitrate TOP 18:00 04/12/19 (Silver 18:01 Nitrate Swabs) Procedures/MDM Vital signs stable, differential diagnosis include but not limited to: DVT, superficial thrombosis, cellulitis, erysipelas, shingles, abscess. Low suspicion for acute systemic infectious process. Physical examination and clinical presentation consistent most likely with cellulitis of the left lower extremity without evidence of abscess formation and epistaxis of the left nostril that was controlled with direct pressure. During the ED course the patient remained stable, no new complaints. Results and clinical impression discussed with the patient who agrees with management. The patient is stable to be treated outpatient and will be di scharged home with a Rx for antibiotics, anti-inflammatories and pain medications, some side effects of prescribed medications (headache, rash, nausea, vomiting, diarrhea, drowsiness, habituation, bleeding, hypertension, interactions with other medications) were reviewed. The patient was instructed to follow up with the primary care provider in the next 48h. If symptoms persist, worsen or new symptoms develop, then patient should return to the ED immediately. Instructions explained and given directly by me to the patient and relatives with acknowledgment and demonstrated understanding. Disclaimer: Inadvertent spelling and grammatical errors are likely due to EHR/dictation software use and do not reflect on the overall quality of patient care. Also, please note that the electronic time recorded on this note does not necessarily reflect the actual time of the patient encounter. Departure Diagnosis: Primary Impression: Epistaxis Additional Impression: Left leg cellulitis Condition: Stable Patient Instructions: Epistaxis (Adult) Additional Instructions: Thank you very much for allowing us to participate in your care. Your health and safety is our top priority at [facility]. The evaluation in the emergency department has been done to rule out an acute emergency. Chronic, [id number] conditions may have not been evaluated; therefore, you need to follow up with a primary care provider in the next 48h. If symptoms persist, worsen or new symptoms develop, then patient should return to the ED immediately. Call your primary care doctor TOMORROW for an appointment during the next 2-4 days and bring all the information provided. Have prescriptions filled and follow precisely the directions on the label. If the symptoms get worse and your provider is unavailable, return to the Emergency Department immediately. LEDY SAEED MD Apr 12, 2019 17:33
[2019-04-12] MEDS ORDERED: SILVER NITRATE SWAB TOP ONE (18:00)
== END 2019-04-12 18:49 | disposition home or self-care (01) ==
LOC: FTE 17:04
DX: R04.0 Epistaxis (principal); L03.116 Cellulitis of left lower limb; I10 Essential (primary) hypertension; E11.9 Type 2 diabetes mellitus without complications; Z79.84 Long term (current) use of oral hypoglycemic drugs; Z87.891 Personal history of nicotine dependence
CPT/HCPCS: 30901; Z7502; Z7610